=== PATIENT | female | born 1950 | race Caucasian/White ===

== ENCOUNTER 2018-10-19 21:11 | Inpatient (IN) | payer MEDICARE, MEDICAID ==
--- NOTE | 2018-10-19 21:55 | ED Physician Chart ---
ED Chief Complaint/HPI - Patient Information Date Seen:: 10/19/18 Time Seen:: 21:49 Chief Complaint:: anxiety headache History of Present Illness:: 68 yr old female with hx of copd htn anxiety for worsening anxiety migraines and trouble sleeping now on 10mg ambien Allergies:: Allergies Allergy/AdvReac Type Severity Reaction Status Date / Time erythromycin base Allergy Unknown RASH Verified 05/29/18 20:49 naloxone Allergy Unknown Verified 05/29/18 20:51 albuterol Allergy Verified 05/29/18 20:55 latex Allergy Verified 05/29/18 20:59 oxycodone Allergy Verified 05/29/18 20:51 pentazocine Allergy Verified 05/29/18 20:53 prednisone Allergy Verified 05/29/18 20:53 tetracycline Allergy Verified 05/29/18 20:54 theophylline Allergy Verified 05/29/18 20:54 Vitals:: Vital Signs - 8 hr 10/19/18 21:24 Temp 98.6 F HR 82 RR 17 BP 115/72 O2 Sat % 96 ED Review of Systems - Review of Systems General/Constitutional: No fever Skin: No skin lesions Head: Headache Eyes: No loss of vision ENT: No earache Neck: No neck pain Cardio Vascular: No chest pain Pulmonary: No SOB GI: No vomiting G/U: No dysuria Musculoskeletal: No bone or joint pain Endocrine: No polyuria Psychiatric: Depression, Anxiety Hematopoietic: No bruising Allergic/Immuno: No urticaria Neurological: No syncope Family Medical History - Family Member Mother History Unknown: Yes Ethnicity: Unknown Living Status: Unknown Hx Family Cancer: (unknown) Hx Family Coronary Artery Disease: (unknown) Hx Family Congestive Heart Failure: (unknown) Hx Family Hypertension: (unknown) Hx Family Stroke: (unknown) Hx Family Diabetes: (unknown) Hx Family Seizures: (unknown) Hx Family Dementia: (unknown) Hx Family AIDS: (unknown) Hx Family HIV: No Hx Family COPD: (unknown) Hx Family Hepatitis: (unknown) Hx Family Psychiatric Problems: (unknown) Hx Family Tuberculosis: (unknown) ED Septic Shock - . Is Septic Shock (SBP<90, OR Lactate>4 mmol\L) present?: No - <6hrs of presentation: Vital Signs: Vital Signs - 8 hr 10/19/18 21:24 Temp 98.6 F HR 82 RR 17 BP 115/72 O2 Sat % 96 ED Reassessment (Disposition) - Reassessment Reassessment:: insomnia anxiety - Diagnosis Diagnosis:: anxiety headache - Patient Disposition Discharge/Transfer:: Acute Care w/in this hosp Admitted to:: Med/Surg Condition at Disposition:: Stable
[2018-10-19 22:09] LABS: % BASOPHILS 0.6 % (0.0-2.0); % EOSINOPHILS 3.7 % (0.0-5.0); % LYMPHOCYTES 20.7 % (20.0-50.0); % MONOCYTES 8.9 % (2.0-10.0); % NEUTROPHILS 66.1 % (40.0-80.0); BASOPHILE ABSOLUTE 0.1 Th/cumm (0-0.2); EOSINOPHILE ABSOLUTE 0.3 Th/cmm (0.1-0.4); HEMATOCRIT 32.1 % (41.0-60); HEMOGLOBIN 10.7 gm/dL (12-16); LYMPHOCYTE ABSOLUTE 1.8 Th/cmm (1.5-3.0); MEAN CELL VOLUME 94.2 fl (81-100); MEAN CORPUSCULAR HEMOGLOBIN 31.5 pg (27.0-31.0); MEAN CORPUSCULAR HGB CONC 33.4 pg (28.0-36.0); MONOCYTE ABSOLUTE 0.8 Th/cmm (0.3-1.0); NEUTROPHILE ABSOLUTE 5.6 Th/cmm (1.8-8.0); PLATELET COUNT 243 Th/cmm (150-400); RED CELL DISTRIBUTION WIDTH 13.8 % (11.5-20.0); WHITE BLOOD COUNT 8.6 Th/cmm (4.8-10.8)
[2018-10-19 22:24] LABS: ALB/GLOB RATIO 1.7 (1.0-1.8); ALBUMIN 3.9 gm/dL (3.7-5.3); ANION GAP 14.6 (7.0-16.0); BILIRUBIN,TOTAL 0.4 mg/dL (0.3-1.0); CALCIUM SERUM 9.4 mg/dL (8.6-10.3); CARBON DIOXIDE 22.4 mEq/L (21.0-31.0); CREATININE - SERUM 1.4 mg/dL (0.6-1.2); GFR AFRICAN-AMERICAN 48.4 ml/min (>90); TOTAL PROTEIN,SERUM 6.2 gm/dL (6.0-8.3)
[2018-10-19 22:31] LABS: URINE SOURCE CLEAN C
[2018-10-19 22:32] LABS: URINE BILIRUBIN NEGATIVE (NEGATIVE); URINE BLOOD NEGATIVE (NEGATIVE); URINE GLUCOSE (UA) NEGATIVE (NEGATIVE); URINE KETONE NEGATIVE (NEGATIVE); URINE LEUKOCYTE ESTERASE SMALL (NEGATIVE); URINE NITRATE NEGATIVE (NEGATIVE); URINE PROTEIN NEGATIVE (NEGATIVE); URINE UROBILINOGEN 0.2 E.U./dL (0.2 - 1.0)
[2018-10-19 22:33] LABS: URINE CLARITY HAZY (CLEAR); URINE COLOR YELLOW; URINE MICROSCOPIC INDICATED? YES
[2018-10-19 22:38] LABS: URINE BACTERIA FEW /hpf (NONE SEEN); URINE EPITHELIAL CELLS FEW /lpf (FEW); URINE RBC 0-2 /hpf (0-5)
[2018-10-20 00:47] VITALS: BP 133/41
[2018-10-20] MEDS ORDERED: Magnesium Hydroxide (MOM) 30 mL UDC PO PRN (00:57)
[2018-10-20] MEDS ORDERED: Multivitamin Tab PO SCH (09:00)
--- NOTE | 2018-10-20 14:26 | History & Physical ---
ADMIT DATE: 10/20/2018 DICTATED FOR: Dr. Quiroz. CHIEF COMPLAINT: Medical evaluation and clearance on the patient who has been admitted to inpatient psych. HISTORY OF PRESENT ILLNESS: This is a 68-year-old female admitted from Home who was admitted here to the Med/Surg unit due to severe migraines and insomnia. PAST MEDICAL HISTORY: Hypertension, hypercholesterolemia, CAD, insomnia, depression. PAST SURGICAL HISTORY: Unknown. ALLERGIES: ERYTHROMYCIN, NALOXONE, ALBUTEROL, OXYCODONE, AND LATEX. REVIEW OF SYSTEMS: GENERAL: Denies any fever or chills. CARDIOVASCULAR: Denies chest pain. RESPIRATORY: Denies shortness of breath. GASTROINTESTINAL: Denies nausea, vomiting, abdominal pain. GENITOURINARY: Denies increased frequency or dysuria. NEUROLOGIC: Denies headache, seizure, syncope. All systems are reviewed and are negative. PHYSICAL EXAMINATION: GENERAL: The patient is well developed, well nourished, in no apparent distress. VITAL SIGNS: Temperature 96.2, heart rate 61, blood pressure 113/41, respiration 18, O2 98%. HEENT: Head normocephalic, atraumatic. NECK: Supple. No mass. LUNGS: Clear bilaterally. HEART: Regular rhythm. ABDOMEN: Soft, nontender. LABORATORY DATA: WBC 8.6, H and H 10.7 and 32.1, platelet of 243. Sodium 138, potassium 4.0, chloride 105, BUN 27, creatinine 1.4. ASSESSMENT: Migraines, anxiety, severe depression, type 2 diabetes. PLAN: The patient to be admitted to Med/Surg Unit. We will get psychiatry on the case. We will continue to monitor the patient. JOB# [id number]
[2018-10-20] MEDS ORDERED: Atorvastatin Calcium 10 MG TAB PO SCH (17:00)
== END 2018-10-20 17:47 | DRG 103 ==
LOC: ER 21:11 → MSI 23:07
PROVIDERS: ADMIT Internal Medicine; ATTEND Internal Medicine
DX: G43.909 Migraine, unspecified, not intractable, without status migrainosus (principal); F41.9 Anxiety disorder, unspecified; J44.9 Chronic obstructive pulmonary disease, unspecified; I10 Essential (primary) hypertension; G47.00 Insomnia, unspecified; E78.00 Pure hypercholesterolemia, unspecified; I25.10 Atherosclerotic heart disease of native coronary artery without angina pectoris; F32.9 Major depressive disorder, single episode, unspecified; Z88.1 Allergy status to other antibiotic agents
CPT/HCPCS: 36415-UA; 80053-TC; 81001-TC; 85025-TC; Z7610

== ENCOUNTER 2019-05-04 21:50 | Inpatient (IN) | payer MEDICARE, MEDICAID ==
[2019-05-05] MEDS ORDERED: OLOPATADINE HCL EACH EYE PRN (05:13)
[2019-05-05] MEDS ORDERED: Magnesium Hydroxide (MOM) 30 mL UDC PO PRN (05:13)
--- NOTE | 2019-05-05 08:05 | Psychiatric Evaluation ---
DATE OF SERVICE: 05/05/2019 PSYCHIATRIC INITIAL EVALUATION AND MENTAL STATUS EXAM AGE: 69. SEX: Female. PHYSICIAN: Dr. Stroud. CHIEF COMPLAINT: Agitation and increased anxiety. HISTORY OF PRESENT ILLNESS: The patient is a 69-year-old female who was transferred from [facility] because of increased agitation and increased anxiety. The patient has been restless and anxious and in irritable mood. The patient also has not been able to follow staff directions and nursing facility and staff has not been able to handle her agitation and irritability. The patient also has been having difficulty taking her medications. PAST PSYCHIATRIC HISTORY: The patient has a history of depression with psychosis. The patient is currently taking Zoloft and Remeron. PAST MEDICAL HISTORY: The patient has history of migraine headaches as well as hypercholesterolemia, hypertension and coronary artery disease. SOCIAL HISTORY: The patient has been living in [facility]. No known alcohol or any street drug use. ALLERGIES: ERYTHROMYCIN, OXYCODONE, LASIX, ALBUTEROL, NALTREXONE. MENTAL STATUS EXAMINATION: The patient appears her stated age. Anxious. Cooperative. Depressed mood. Preoccupied. Thought processes are mainly goal directed. The patient denies auditory or visual hallucinations or delusions. The patient denies any suicidal or homicidal ideations. The patient is alert and oriented to time, place, person, and situation. Intact immediate, recent and remote memories. Poor insight and poor judgment. Seems to be of average intelligence based on her verbal ability. ASSESSMENT: PRIMARY DIAGNOSIS: Depressive mood disorder, unspecified, with psychotic features. MEDICAL DIAGNOSES: 1. Hypercholesterolemia. 2. Migraine headaches. 3. Hypertension 4. Coronary artery disease. TREATMENT PLAN: We will continue to monitor behavior and condition closely. Also, we will add Risperdal in a dose of 0.25 mg at bedtime. Also, we will work on her poor ineffective coping and her irritability. ESTIMATED LENGTH OF STAY: 5-7 days. PATIENT'S STRENGTHS AND WEAKNESSES: The patient's strength is not clear at this time except that she is in relatively fair health. Weaknesses is her ineffective coping and her agitation. AFTER DISCHARGE PLANS: The patient will return to [facility] with plans to follow her up. CRITERIA FOR DISCHARGE: The patient will not be psychotic and will stabilize psychotropic medications and will establish outpatient treatment plans. JOB# [id number]
[2019-05-05] MEDS: Ferrous Sulfate 325 MG TAB PO SCH ×3 (08:15→21:32)
[2019-05-05] MEDS ORDERED: FLUTICASONE PROPIONATE IH SCH (09:00)
--- NOTE | 2019-05-05 12:21 | History and Physical ---
History of Present Illness - HPI Chief Complaint: Agitation and increased anxiety HPI: 69F Transferred from [facility] for increased agitation and anxiety. Patient has not been able to follow staff directions and nursing facility has not been able to handle her agitation and irritability. Vital Signs: Last Vital Signs Temp 97.6 F 05/05/19 06:12 Pulse 73 05/05/19 08:15 Resp 18 05/05/19 06:12 BP 113/63 05/05/19 08:17 Pulse Ox 97 05/05/19 06:12 Past Medical History Other History: Migraine Hyperlipidemai HTN CAD Insomnia Depression Family Medical History - Family Member Mother History Unknown: Yes Ethnicity: Unknown Living Status: Unknown Hx Family Cancer: (unknown) Hx Family Coronary Artery Disease: (unknown) Hx Family Congestive Heart Failure: (unknown) Hx Family Hypertension: (unknown) Hx Family Stroke: (unknown) Hx Family Diabetes: (unknown) Hx Family Seizures: (unknown) Hx Family Dementia: (unknown) Hx Family AIDS: (unknown) Hx Family HIV: No Hx Family COPD: (unknown) Hx Family Hepatitis: (unknown) Hx Family Psychiatric Problems: (unknown) Hx Family Tuberculosis: (unknown) Social History Smoke: No Alcohol: Other Drugs: Other Lives: [facility] - Medications Home Medications: Home Medication Medication Instructions Recorded Type Atorvastatin Calcium [Lipitor] 40 mg PO HS 10/19/18 History Docusate Sodium 100 mg PO DAILY 10/19/18 History Fluticasone Propionate [Flovent 2 puff IH BID 10/19/18 History Hfa] Olopatadine HCl [Pazeo] 1 drop EACH EYE DAILY PRN 10/19/18 History Cholecalciferol (Vit D3) [Vitamin 1,000 iu PO DAILY tab 11/02/18 Rx D3] Clopidogrel [Plavix] 37.5 mg PO DAILY tab 11/02/18 Rx Cyanocobalamin [Vitamin B12] 1,000 mcg PO DAILY tab 11/02/18 Rx Enalapril Maleate [Vasotec] 10 mg PO DAILY tab 11/02/18 Rx Hydrochlorothiazide [Hctz*] 25 mg PO DAILY tab 11/02/18 Rx Ketotifen 0.025% Ophth Soln 1 drop EACH EYE DAILY drops 11/02/18 Rx [Zaditor 0.025% Ophth Soln] Lorazepam [Ativan] 0.5 mg PO Q4HR PRN tab 11/02/18 Rx Magnesium Hydroxide [Milk of 30 ml PO DAILY PRN udc 11/02/18 Rx Magnesia] Zolpidem Tartrate [Ambien] 5 mg PO HS PRN tab 11/02/18 Rx Acetaminophen [Tylenol] 650 mg PO Q4H PRN 05/05/19 History Acetaminophen [Tylenol] 650 mg PO Q4HR PRN 05/05/19 History Ferrous Sulfate [Iron] 325 mg PO TID 05/05/19 History Mirtazapine [Remeron] 7.5 mg PO HS 05/05/19 History Sertraline [Zoloft] 25 mg PO QAM 05/05/19 History - Allergies Allergies/Adverse Reactions: Allergies Allergy/AdvReac Type Severity Reaction Status Date / Time erythromycin base Allergy Unknown RASH Verified 05/05/19 03:55 naloxone Allergy Unknown Verified 05/05/19 03:55 albuterol Allergy Verified 05/05/19 03:55 ciprofloxacin Allergy Verified 05/05/19 03:57 furosemide [From Lasix] Allergy Verified 05/05/19 03:59 latex Allergy Verified 05/05/19 03:55 oxycodone Allergy Verified 05/05/19 03:55 pentazocine Allergy Verified 05/05/19 03:55 prednisone Allergy Verified 05/05/19 03:55 tetracycline Allergy Verified 05/05/19 03:55 theophylline Allergy Verified 05/05/19 03:55 vancomycin Allergy Verified 05/05/19 03:57 Review of Systems - Review of Systems Constitutional: Report: No Significant Eyes: Report: No Significant Respiratory: Report: No Significant Cardiovascular: Report: No Significant Neurological: Report: Confusion Physical Exam - Physical Exam HEENT: Report: Ears Nose Throat within normal limits Neck: Report: Within normal limits Cardiovascular Systems: Report: +s1/s2 noted, Regular, Rate and Rhythm, no murmurs noted Respiratory: Report: Breath Sounds are within normal limits Abdomen: Report: Non-tender to palpation Extremities: Report: Non-tender to palpation. Skin: Report: Color of skin is within normal limits - Assessment Assessment: Agitation Anxiety Migraine HTN CAD Insomnia Depression - Plan Plan: Continue current treatment plan. Continue current medications Continue to monitor VS Monitor Diet/Nutritional support. Psych management per Psychiatry. Pain Management. PT/OT prn Safety precaution, Fall precaution, frequent nursing round. Supportive care. Continue collaborating with consulting specialists, case management and nursing team
--- NOTE | 2019-05-06 08:11 | Progress Notes ---
DATE: 05/06/2019 SUBJECTIVE: The patient was seen in her room. The patient is awake, alert, appears to be forgetful with poor impulse control and needs a lot of redirection. Otherwise, the patient appears to be in no acute distress. OBJECTIVE: VITAL SIGNS: Temperature 97.5, heart rate 67, blood pressure 131/61, respirations 20, 94% on room air. HEENT: Head is atraumatic and normocephalic. Eyes: Bilateral conjunctivae are clear. Bilateral pupils are equal, round, reactive. NECK: Supple. No JVD. CARDIOVASCULAR: S1 and S2, without murmur. PULMONARY: Clear to auscultation. GASTROINTESTINAL: Soft and nontender without guarding. Positive bowel sounds. MUSCULOSKELETAL: No clubbing. No cyanosis noted. ASSESSMENT: 1. Major depression disorder with psychotic features. 2. Hypertension. 3. Coronary artery disease. 4. Hyperlipidemia. 5. Migraine. PLAN: We will continue to keep the patient inpatient to Psychiatric Unit. We will follow up with a psychiatrist to monitor the patient's condition and behavior. We will put the patient on fall precautions. Treatment plans were discussed with the patient's nurse. Treatment plans were discussed with Dr. Quiroz. JOB# [id number]
[2019-05-06] MEDS: Ferrous Sulfate 325 MG TAB PO SCH ×3 (08:47→21:19)
--- NOTE | 2019-05-07 04:59 | Progress Notes ---
DATE: 05/06/2019 SUBJECTIVE: Chart was reviewed and the patient interviewed. Also discussed the patient's condition with the staff and reviewed records and labs. The patient is still anxious and she still has episodes of yelling. The patient also continues to ask for Tylenol for pain and after she takes Tylenol, goes back and asks for another Tylenol. She is still easily agitated and she is in irritable mood. The patient also tries to get off bed and exposing herself to high fall risk. On the other hand, the patient is compliant with taking her medications with no side effects. ASSESSMENT: The patient is still agitated and seems to be psychotic. TREATMENT PLAN: Continue monitoring behavior closely. Also, continue Remeron and Seroquel, but also continue Zoloft in a dose of 25 mg every day and continue to follow up. JOB# [id number]
[2019-05-07] MEDS: Ferrous Sulfate 325 MG TAB PO SCH ×3 (09:27→21:03)
--- NOTE | 2019-05-07 19:45 | Progress Notes ---
DATE: 05/07/2019 SUBJECTIVE: Chart was reviewed and the patient interviewed. Also discussed the patient's condition with the staff and reviewed records and labs. The patient still has episodes of yelling and screaming for no apparent reason. The patient also is still talking to herself. The patient also is agitated and is somewhat confused and suspicious and paranoid, but easily got redirected. The patient continued to comply with taking her medications with no side effects of medications. ASSESSMENT: The patient is still agitated and psychotic. TREATMENT PLAN: Continue monitoring her behavior and condition closely. Also, continue Risperdal and Zoloft and Remeron and continue to follow up. JOB# [id number]
--- NOTE | 2019-05-07 21:52 | Internal Medicine Prog Note ---
Internal Medicine Subjective - Subjective Patient is:: asleep, arousable, in bed, confused Per staff patient has:: no adverse event, no episodes of fall Internal Medicine Objective - Physical Exam Vitals and I&O: Vital Signs Temp 98.4 F 05/07/19 20:20 Pulse 79 05/07/19 20:20 Resp 20 05/07/19 20:20 BP 120/54 05/07/19 20:20 Pulse Ox 93 05/07/19 20:20 Intake & Output 05/07/19 05/07/19 05/08/19 06:59 18:59 06:59 Intake Total 240 240 Balance 240 240 Intake: Oral 240 240 Other: # Voids 1 3 2 # Bowel Movements 1 Active Medications: Current Medications Acetaminophen (Tylenol) 650 mg PO Q4H PRN PRN Reason: Pain (Mild 1-3) Stop: 07/04/19 04:26 Last Admin: 05/06/19 11:34 Dose: 650 mg Amoxicillin (Amoxil) 500 mg PO TID [facility] Stop: 05/14/19 08:59 Last Admin: 05/07/19 21:02 Dose: 500 mg Atorvastatin Calcium (Lipitor) 40 mg PO HS [facility] Stop: 07/04/19 20:59 Last Admin: 05/07/19 21:03 Dose: 40 mg Cholecalciferol (Vitamin D3) 1,000 iu PO DAILY [facility] Stop: 07/04/19 08:59 Last Admin: 05/07/19 09:24 Dose: 1,000 iu Clopidogrel Bisulfate (Plavix) 37.5 mg PO DAILY [facility] Stop: 07/04/19 08:59 Last Admin: 05/07/19 09:24 Dose: 37.5 mg Cyanocobalamin (Vitamin B12) 1,000 mcg PO DAILY [facility] Stop: 07/04/19 08:59 Last Admin: 05/07/19 09:25 Dose: 1,000 mcg Docusate Sodium (Colace) 100 mg PO DAILY [facility] Stop: 07/04/19 08:59 Last Admin: 05/07/19 09:25 Dose: 100 mg Enalapril Maleate (Vasotec) 10 mg PO DAILY [facility] Stop: 07/04/19 08:59 Last Admin: 05/07/19 09:25 Dose: 10 mg Ferrous Sulfate (Iron) 325 mg PO TID [facility] Stop: 07/04/19 08:59 Last Admin: 05/07/19 21:03 Dose: 325 mg Hydrochlorothiazide (Hctz) 25 mg PO DAILY [facility] Stop: 07/04/19 08:59 Last Admin: 05/07/19 09:27 Dose: 25 mg Ketotifen Fumarate (Zaditor 0.025% Ophth Soln) 1 drop EACH EYE DAILY [facility] Stop: 07/04/19 08:59 Last Admin: 05/07/19 09:28 Dose: 1 drop Lorazepam (Ativan) 0.5 mg PO Q4HR PRN; Protocol PRN Reason: Anxiety Stop: 07/04/19 05:10 Last Admin: 05/06/19 21:19 Dose: 0.5 mg Magnesium Hydroxide (Milk Of Magnesia) 30 ml PO DAILY PRN PRN Reason: Constipation Stop: 07/04/19 05:12 Mirtazapine (Remeron) 7.5 mg PO HS ANNY; Protocol Stop: 07/04/19 20:59 Last Admin: 05/07/19 21:02 Dose: 7.5 mg Risperidone (Risperdal) 0.25 mg PO DAILY [facility]; Protocol Stop: 07/04/19 08:59 Last Admin: 05/07/19 09:28 Dose: 0.25 mg Sertraline HCl (Zoloft) 25 mg PO QAM [facility]; Protocol Stop: 07/04/19 08:59 Last Admin: 05/07/19 09:28 Dose: 25 mg Zolpidem Tartrate (Ambien) 5 mg PO HS PRN PRN Reason: Insomnia Stop: 07/04/19 05:10 Last Admin: 05/07/19 21:03 Dose: 5 mg General: weak, demented, NAD HEENT: NC/AT, PERRLA Neck: Supple, No JVD Lungs: other (no respiratory distress on RA) Cardiovascular: RRR, Normal S1, Normal S2, without murmur Abdomen: soft, non-tender, non-distended Internal Medicine Assmt/Plan - Assessment Assessment: Agitation Anxiety Migraine HTN CAD Insomnia Depression - Plan Plan: Continue current treatment plan. Continue current medications Continue to monitor VS Monitor Diet/Nutritional support. Psych management per Psychiatry. Pain Management. PT/OT prn Safety precaution, Fall precaution, frequent nursing round. Supportive care. Continue collaborating with consulting specialists, case management and nursing team
[2019-05-08] MEDS: Ferrous Sulfate 325 MG TAB PO SCH ×3 (08:35→20:57)
--- NOTE | 2019-05-08 11:33 | Internal Medicine Prog Note ---
Internal Medicine Subjective - Subjective Service Date: 05/08/19 Patient seen and examined:: with staff Patient is:: asleep, arousable, agitated, confused Patient Complaints of:: other (History of Migraines.) Per staff patient has:: no adverse event, no episodes of fall Internal Medicine Objective - Physical Exam Vitals and I&O: Vital Signs Temp 97.3 F 05/08/19 05:52 Pulse 82 05/08/19 08:34 Resp 18 05/08/19 07:39 BP 153/66 05/08/19 08:35 Pulse Ox 92 05/08/19 05:52 Intake & Output 05/07/19 05/08/19 05/08/19 18:59 06:59 18:59 Intake Total 360 Balance 360 Intake: Oral 360 Other: # Voids 3 2 # Bowel Movements 1 1 Active Medications: Current Medications Acetaminophen (Tylenol) 650 mg PO Q4H PRN PRN Reason: Pain (Mild 1-3) Stop: 07/04/19 04:26 Last Admin: 05/06/19 11:34 Dose: 650 mg Amoxicillin (Amoxil) 500 mg PO TID [facility] Stop: 05/14/19 08:59 Last Admin: 05/08/19 08:34 Dose: 500 mg Atorvastatin Calcium (Lipitor) 40 mg PO HS [facility] Stop: 07/04/19 20:59 Last Admin: 05/07/19 21:03 Dose: 40 mg Cholecalciferol (Vitamin D3) 1,000 iu PO DAILY [facility] Stop: 07/04/19 08:59 Last Admin: 05/08/19 08:34 Dose: 1,000 iu Clopidogrel Bisulfate (Plavix) 37.5 mg PO DAILY [facility] Stop: 07/04/19 08:59 Last Admin: 05/08/19 08:34 Dose: 37.5 mg Cyanocobalamin (Vitamin B12) 1,000 mcg PO DAILY [facility] Stop: 07/04/19 08:59 Last Admin: 05/08/19 08:34 Dose: 1,000 mcg Docusate Sodium (Colace) 100 mg PO DAILY [facility] Stop: 07/04/19 08:59 Last Admin: 05/08/19 08:34 Dose: 100 mg Enalapril Maleate (Vasotec) 10 mg PO DAILY [facility] Stop: 07/04/19 08:59 Last Admin: 05/08/19 08:34 Dose: 10 mg Ferrous Sulfate (Iron) 325 mg PO TID [facility] Stop: 07/04/19 08:59 Last Admin: 05/08/19 08:35 Dose: 325 mg Hydrochlorothiazide (Hctz) 25 mg PO DAILY [facility] Stop: 07/04/19 08:59 Last Admin: 05/08/19 08:35 Dose: 25 mg Ketotifen Fumarate (Zaditor 0.025% Ophth Soln) 1 drop EACH EYE DAILY [facility] Stop: 07/04/19 08:59 Last Admin: 05/08/19 08:36 Dose: 1 drop Lorazepam (Ativan) 0.5 mg PO Q4HR PRN; Protocol PRN Reason: Anxiety Stop: 07/04/19 05:10 Last Admin: 05/08/19 10:49 Dose: 0.5 mg Magnesium Hydroxide (Milk Of Magnesia) 30 ml PO DAILY PRN PRN Reason: Constipation Stop: 07/04/19 05:12 Mirtazapine (Remeron) 7.5 mg PO HS [facility]; Protocol Stop: 07/04/19 20:59 Last Admin: 05/07/19 21:02 Dose: 7.5 mg Risperidone (Risperdal) 0.5 mg PO DAILY [facility]; Protocol Stop: 07/07/19 08:59 Last Admin: 05/08/19 10:49 Dose: 0.5 mg Sertraline HCl (Zoloft) 25 mg PO QAM [facility]; Protocol Stop: 07/04/19 08:59 Last Admin: 05/08/19 08:36 Dose: 25 mg Zolpidem Tartrate (Ambien) 5 mg PO HS PRN PRN Reason: Insomnia Stop: 07/04/19 05:10 Last Admin: 05/07/19 21:03 Dose: 5 mg Physical Exam: Patient needs close monitoring, very aggressive, paranoid, having episodes of yelling. General: weak, demented, NAD HEENT: NC/AT, PERRLA Neck: Supple, No JVD Lungs: other (no respiratory distress on RA) Cardiovascular: RRR, Normal S1, Normal S2, without murmur Abdomen: soft, non-tender, non-distended Extremities: clear Neurological: no change Internal Medicine Assmt/Plan - Assessment Assessment: Agitated. Increased Anxiety. Paranoia. Migraine Headaches. Hypertension. CAD. Hypercholesterolemia. Insomnia. Depressive mood disorder, unspecified, with psychotic features. - Plan Plan: Psych management as per Psych. Continue present meds as directed. Monitor diet and nutritional support. Supportive care. Monitor vitals and labs. Pain management. Continue current treatment plan as ordered. Nutritional Asmnt/Malnutr-PDOC - Dietary Evaluation Malnutrition Findings (Please click <Entered> for more info): see orders.
[2019-05-08] MEDS ORDERED: Albuterol Nebulizer 2.5mg/3mL HHN PRN (19:20)
--- NOTE | 2019-05-09 01:34 | Progress Notes ---
DATE: 05/08/2019 SUBJECTIVE: Chart was reviewed and the patient interviewed. Also discussed the patient's condition with the staff and reviewed records and labs. The patient is still suspicious and paranoid. The patient also is demanding and is still repeating the same question over and over in a confused state. She also still needs lots of redirection and easily agitated. ASSESSMENT: The patient is still psychotic and agitated. TREATMENT PLAN: We will continue monitoring behavior closely. Also, we will increase Risperdal to 0.5 mg every day and continue Zoloft 50 mg every day and continue to follow up closely. JOB# [id number]
[2019-05-09] MEDS: Ferrous Sulfate 325 MG TAB PO SCH ×3 (09:04→20:55)
--- NOTE | 2019-05-09 11:20 | Progress Notes ---
DATE: 05/09/2019 SUBJECTIVE: Chart reviewed and the patient interviewed. Also discussed the patient's condition with the staff and reviewed records and labs. The patient is still forgetful and is still easily irritable and agitated. The patient also is intrusive and is suspicious and paranoid. The patient also paranoid about the staff and telling nurses that "are you going to kill me." She is still attention seeking and also is still in angry and in irritable mood with severe mood swings. ASSESSMENT: The patient is still agitated and is still psychotic. TREATMENT PLAN: Continue to monitor behavior and condition closely. Also, continue adjusting psychotropic medications and we will increase Risperdal to 0.5 mg twice a day and we will continue to follow up. [facility]# [id number]
--- NOTE | 2019-05-09 17:27 | Internal Medicine Prog Note ---
Internal Medicine Subjective - Subjective Service Date: 05/09/19 Patient is:: asleep, arousable, agitated, confused Patient Complaints of:: other (History of Migraines.) Per staff patient has:: no adverse event, no episodes of fall Internal Medicine Objective - Physical Exam Vitals and I&O: Vital Signs Temp 97.6 F 05/09/19 15:48 Pulse 59 05/09/19 15:48 Resp 18 05/09/19 15:48 BP 119/54 05/09/19 15:48 Pulse Ox 93 05/09/19 15:48 Intake & Output 05/08/19 05/09/19 05/09/19 18:59 06:59 18:59 Intake Total 1000 240 Balance 1000 240 Intake: Oral 1000 240 Other: # Voids 4 1 # Bowel Movements 1 Active Medications: Current Medications Acetaminophen (Tylenol) 650 mg PO Q4H PRN PRN Reason: Pain (Mild 1-3) Stop: 07/04/19 04:26 Last Admin: 05/08/19 21:02 Dose: 650 mg Amoxicillin (Amoxil) 500 mg PO TID ANNY Stop: 05/14/19 08:59 Last Admin: 05/09/19 14:13 Dose: 500 mg Atorvastatin Calcium (Lipitor) 40 mg PO HS ANNY Stop: 07/04/19 20:59 Last Admin: 05/08/19 20:58 Dose: 40 mg Cholecalciferol (Vitamin D3) 1,000 iu PO DAILY ANNY Stop: 07/04/19 08:59 Last Admin: 05/09/19 09:05 Dose: 1,000 iu Clopidogrel Bisulfate (Plavix) 37.5 mg PO DAILY ANNY Stop: 07/04/19 08:59 Last Admin: 05/09/19 09:05 Dose: 37.5 mg Cyanocobalamin (Vitamin B12) 1,000 mcg PO DAILY ANNY Stop: 07/04/19 08:59 Last Admin: 05/09/19 09:04 Dose: 1,000 mcg Docusate Sodium (Colace) 100 mg PO DAILY ANNY Stop: 07/04/19 08:59 Last Admin: 05/09/19 09:04 Dose: 100 mg Enalapril Maleate (Vasotec) 10 mg PO DAILY ANNY Stop: 07/04/19 08:59 Last Admin: 01/28/20 09:16 Dose: 10 mg Ferrous Sulfate (Iron) 325 mg PO TID [facility] Stop: 07/04/19 08:59 Last Admin: 05/09/19 14:13 Dose: 325 mg Hydrochlorothiazide (Hctz) 25 mg PO DAILY [facility] Stop: 07/04/19 08:59 Last Admin: 05/09/19 09:17 Dose: 25 mg Ketotifen Fumarate (Zaditor 0.025% Ophth Soln) 1 drop EACH EYE DAILY [facility] Stop: 07/04/19 08:59 Last Admin: 05/09/19 09:42 Dose: 1 drop Lorazepam (Ativan) 0.5 mg PO Q4HR PRN; Protocol PRN Reason: Anxiety Stop: 07/04/19 05:10 Last Admin: 05/09/19 11:34 Dose: 0.5 mg Magnesium Hydroxide (Milk Of Magnesia) 30 ml PO DAILY PRN PRN Reason: Constipation Stop: 07/04/19 05:12 Mirtazapine (Remeron) 7.5 mg PO HS [facility]; Protocol Stop: 07/04/19 20:59 Last Admin: 05/08/19 20:58 Dose: 7.5 mg Risperidone (Risperdal) 0.5 mg PO BID [facility]; Protocol Stop: 07/08/19 08:59 Last Admin: 05/09/19 16:53 Dose: 0.5 mg Sertraline HCl (Zoloft) 25 mg PO QAM [facility]; Protocol Stop: 07/04/19 08:59 Last Admin: 05/09/19 09:05 Dose: 25 mg Zolpidem Tartrate (Ambien) 5 mg PO HS PRN PRN Reason: Insomnia Stop: 07/04/19 05:10 Last Admin: 05/08/19 20:58 Dose: 5 mg General: weak, demented, NAD HEENT: NC/AT, PERRLA Neck: Supple, No JVD Lungs: other (no respiratory distress on RA) Cardiovascular: RRR, Normal S1, Normal S2, without murmur Abdomen: soft, non-tender, non-distended Extremities: clear Neurological: no change Internal Medicine Assmt/Plan - Assessment Assessment: Agitation Anxiety Migraine HTN CAD Insomnia Depression - Plan Plan: Continue current treatment plan. Continue current medications Continue to monitor VS Monitor Diet/Nutritional support. Psych management per Psychiatry. Pain Management. PT/OT prn Safety precaution, Fall precaution, frequent nursing round. Supportive care. Continue collaborating with consulting specialists, case management and nursing team
[2019-05-10] MEDS: Ferrous Sulfate 325 MG TAB PO SCH ×3 (08:28→20:06)
--- NOTE | 2019-05-10 11:22 | Internal Medicine Prog Note ---
Internal Medicine Subjective - Subjective Service Date: 05/10/19 Patient seen and examined:: with staff Patient is:: asleep, arousable, agitated, confused Patient Complaints of:: other (History of Migraines.) Per staff patient has:: no adverse event, no episodes of fall Internal Medicine Objective - Physical Exam Vitals and I&O: Vital Signs Temp 97.5 F 05/10/19 06:24 Pulse 63 05/10/19 08:29 Resp 18 05/10/19 08:00 BP 121/64 05/10/19 08:30 Pulse Ox 95 05/10/19 06:24 Intake & Output 05/09/19 05/10/19 05/10/19 18:59 06:59 18:59 Intake Total 800 360 Output Total 1 Balance 800 359 Intake: Oral 800 360 Output: Urine/Stool Mix 1 Other: # Voids 4 2 # Bowel Movements 10 0 Active Medications: Current Medications Acetaminophen (Tylenol) 650 mg PO Q4H PRN PRN Reason: Pain (Mild 1-3) Stop: 07/04/19 04:26 Last Admin: 05/08/19 21:02 Dose: 650 mg Atorvastatin Calcium (Lipitor) 40 mg PO HS ANNY Stop: 07/04/19 20:59 Last Admin: 05/09/19 20:54 Dose: 40 mg Cholecalciferol (Vitamin D3) 1,000 iu PO DAILY [facility] Stop: 07/04/19 08:59 Last Admin: 05/10/19 08:29 Dose: 1,000 iu Clopidogrel Bisulfate (Plavix) 37.5 mg PO DAILY [facility] Stop: 07/04/19 08:59 Last Admin: 05/10/19 08:29 Dose: 37.5 mg Cyanocobalamin (Vitamin B12) 1,000 mcg PO DAILY [facility] Stop: 07/04/19 08:59 Last Admin: 05/10/19 08:29 Dose: 1,000 mcg Docusate Sodium (Colace) 100 mg PO DAILY [facility] Stop: 07/04/19 08:59 Last Admin: 05/10/19 08:30 Dose: Not Given Enalapril Maleate (Vasotec) 10 mg PO DAILY [facility] Stop: 07/04/19 08:59 Last Admin: 05/10/19 08:29 Dose: 10 mg Ferrous Sulfate (Iron) 325 mg PO TID ANNY Stop: 07/04/19 08:59 Last Admin: 05/10/19 08:28 Dose: 325 mg Hydrochlorothiazide (Hctz) 25 mg PO DAILY [facility] Stop: 07/04/19 08:59 Last Admin: 05/10/19 08:30 Dose: 25 mg Ketotifen Fumarate (Zaditor 0.025% Ophth Soln) 1 drop EACH EYE DAILY [facility] Stop: 07/04/19 08:59 Last Admin: 05/10/19 08:31 Dose: 1 drop Loperamide HCl (Imodium) 2 mg PO DAILY PRN PRN Reason: Diarrhea Stop: 07/08/19 18:47 Last Admin: 05/09/19 20:55 Dose: 2 mg Lorazepam (Ativan) 0.5 mg PO Q4HR PRN; Protocol PRN Reason: Anxiety Stop: 07/04/19 05:10 Last Admin: 05/09/19 19:49 Dose: 0.5 mg Magnesium Hydroxide (Milk Of Magnesia) 30 ml PO DAILY PRN PRN Reason: Constipation Stop: 07/04/19 05:12 Mirtazapine (Remeron) 7.5 mg PO HS [facility]; Protocol Stop: 07/04/19 20:59 Last Admin: 05/09/19 20:54 Dose: 7.5 mg Risperidone (Risperdal) 1 mg PO BID [facility]; Protocol Stop: 07/09/19 08:59 Last Admin: 05/10/19 09:07 Dose: 1 mg Sertraline HCl (Zoloft) 25 mg PO QAM [facility]; Protocol Stop: 07/04/19 08:59 Last Admin: 05/10/19 08:28 Dose: 25 mg Zolpidem Tartrate (Ambien) 5 mg PO HS PRN PRN Reason: Insomnia Stop: 07/04/19 05:10 Last Admin: 05/09/19 20:55 Dose: 5 mg Physical Exam: Patient needs close monitoring, having mood swings, delusional states that others are trying to kill her. General: weak, demented, NAD HEENT: NC/AT, PERRLA Neck: Supple, No JVD Lungs: other (no respiratory distress on RA) Cardiovascular: RRR, Normal S1, Normal S2, without murmur Abdomen: soft, non-tender, non-distended Extremities: clear Neurological: no change Internal Medicine Assmt/Plan - Assessment Assessment: Agitated. Increased Anxiety. Paranoia. Migraine Headaches. Hypertension. CAD. Hypercholesterolemia. Insomnia. Depressive mood disorder, unspecified, with psychotic features. - Plan Plan: Psych management as per Psych. Continue present meds as directed. Monitor diet and nutritional support. Supportive care. Monitor vitals and labs. Pain management. Continue current treatment plan as ordered. Nutritional Asmnt/Malnutr-PDOC - Dietary Evaluation Malnutrition Findings (Please click <Entered> for more info): see orders.
[2019-05-11] MEDS: Ferrous Sulfate 325 MG TAB PO SCH ×3 (08:34→20:44)
--- NOTE | 2019-05-11 10:13 | Progress Notes ---
DATE: SUBJECTIVE: Chart was reviewed and the patient interviewed. Also discussed the patient's condition with the staff and reviewed records and labs. The patient is still depressed and is still guarded. The patient is also still demanding and is still restless. The patient also intentionally ran into staff and other patients ____ chair, as if it is an accidental. She needs lots of redirections. Also, the patient is needy and attention seeking to the point that yesterday she asked one of staff to "wipe my butt." She still needs lots of redirections because of her agitation. Otherwise, the patient continued to take Zoloft and Risperdal, with no side effects. ASSESSMENT: The patient is still agitated and psychotic and restless. TREATMENT PLAN: Continue to monitor behavior and condition closely. Also, we will increase Risperdal to 1 mg twice a day and we will continue to follow up closely. JOB# [id number]
--- NOTE | 2019-05-11 13:23 | Progress Notes ---
DATE: 05/11/2019 SUBJECTIVE: Chart was reviewed and the patient interviewed. I also discussed the patient's condition with the staff and reviewed records and labs. The patient is forgetful and is still suspicious and paranoid. The patient also is still easily agitated. She also still needs lots of redirections. She is still at times trying to hit other patients with her wheelchair and that is why currently she is placed on the [employer] chair. Otherwise, the patient is compliant with taking her medications with no side effects of medications. ASSESSMENT: The patient is still psychotic and is still in irritable mood. TREATMENT PLAN: We will discontinue Zoloft. We will increase Remeron to 15 mg every day. Also, we will increase Risperdal to 1.5 mg twice a day and continue to follow up her condition and her medications closely. JOB# [id number]
--- NOTE | 2019-05-11 14:06 | Internal Medicine Prog Note ---
Internal Medicine Subjective - Subjective Service Date: 05/11/19 Patient is:: awake, arousable, agitated, confused Patient Complaints of:: other (History of Migraines.) Per staff patient has:: no adverse event, no episodes of fall Internal Medicine Objective - Physical Exam Vitals and I&O: Vital Signs Temp 97.2 F 05/11/19 06:23 Pulse 67 05/11/19 08:44 Resp 18 05/11/19 08:00 BP 119/61 05/11/19 08:44 Pulse Ox 96 05/11/19 06:23 Intake & Output 05/10/19 05/11/19 05/11/19 18:59 06:59 18:59 Intake Total 1200 120 Balance 1200 120 Intake: Oral 1200 120 Other: # Voids 2 # Bowel Movements 1 0 Active Medications: Current Medications Acetaminophen (Tylenol) 650 mg PO Q4H PRN PRN Reason: Pain (Mild 1-3) Stop: 07/04/19 04:26 Last Admin: 05/08/19 21:02 Dose: 650 mg Atorvastatin Calcium (Lipitor) 40 mg PO HS [facility]NY Stop: 07/04/19 20:59 Last Admin: 05/10/19 20:06 Dose: 40 mg Cholecalciferol (Vitamin D3) 1,000 iu PO DAILY [facility] Stop: 07/04/19 08:59 Last Admin: 05/11/19 08:34 Dose: Not Given Clopidogrel Bisulfate (Plavix) 37.5 mg PO DAILY [facility] Stop: 07/04/19 08:59 Last Admin: 05/11/19 08:34 Dose: 37.5 mg Cyanocobalamin (Vitamin B12) 1,000 mcg PO DAILY [facility] Stop: 07/04/19 08:59 Last Admin: 05/11/19 08:46 Dose: 1,000 mcg Docusate Sodium (Colace) 100 mg PO DAILY [facility] Stop: 07/04/19 08:59 Last Admin: 05/11/19 08:46 Dose: Not Given Enalapril Maleate (Vasotec) 10 mg PO DAILY [facility] Stop: 07/04/19 08:59 Last Admin: 05/11/19 08:44 Dose: 10 mg Ferrous Sulfate (Iron) 325 mg PO TID [facility] Stop: 07/04/19 08:59 Last Admin: 05/11/19 08:34 Dose: Not Given Hydrochlorothiazide (Hctz) 25 mg PO DAILY [facility] Stop: 07/04/19 08:59 Last Admin: 05/10/19 08:30 Dose: 25 mg Ketotifen Fumarate (Zaditor 0.025% Ophth Soln) 1 drop EACH EYE DAILY [facility] Stop: 07/04/19 08:59 Last Admin: 05/11/19 11:50 Dose: 1 drop Loperamide HCl (Imodium) 2 mg PO DAILY PRN PRN Reason: Diarrhea Stop: 07/08/19 18:47 Last Admin: 05/09/19 20:55 Dose: 2 mg Lorazepam (Ativan) 0.5 mg PO Q4HR PRN; Protocol PRN Reason: Anxiety Stop: 07/04/19 05:10 Last Admin: 05/11/19 11:50 Dose: 0.5 mg Magnesium Hydroxide (Milk Of Magnesia) 30 ml PO DAILY PRN PRN Reason: Constipation Stop: 07/04/19 05:12 Mirtazapine (Remeron) 15 mg PO HS [facility]; Protocol Stop: 07/10/19 20:59 Risperidone 1 mg/ Risperidone (0.5 mg) 1.5 mg PO BID ANNY Stop: 07/10/19 08:59 Last Admin: 05/11/19 10:30 Dose: Not Given Zolpidem Tartrate (Ambien) 5 mg PO HS PRN PRN Reason: Insomnia Stop: 07/04/19 05:10 Last Admin: 05/10/19 22:34 Dose: 5 mg General: weak, demented, NAD HEENT: NC/AT, PERRLA Neck: Supple, No JVD Lungs: other (no respiratory distress on RA) Cardiovascular: RRR, Normal S1, Normal S2, without murmur Abdomen: soft, non-tender, non-distended Extremities: clear Neurological: no change Internal Medicine Assmt/Plan - Assessment Assessment: Agitation Anxiety Migraine HTN CAD Insomnia Depression - Plan Plan: Continue current treatment plan. Continue current medications Continue to monitor VS Monitor Diet/Nutritional support. Psych management per Psychiatry. Pain Management. PT/OT prn Safety precaution, Fall precaution, frequent nursing round. Supportive care. Continue collaborating with consulting specialists, case management and nursing team Nutritional Asmnt/Malnutr-PDOC - Dietary Evaluation Malnutrition Findings (Please click <Entered> for more info): Nutritional Asmnt/Malnutrition Start: 05/11/19 13: 38 Text: Status: Complete Freq: Protocol: Document 05/11/19 13:38 ABDIEL (Rec: 05/11/19 13:41 [id number]) Nutritional Asmnt/Malnutrition Patient General Information Nutritional Screening Low Risk Diagnosis Psychosis Pertinent Medical Hx/Surgical Hx Migraine, Hyperlipidemia, HTN, CAD, Insomnia, Depression Subjective Information Pt is a 69-year-old female admitted on 05/05 d/t agitation and irritability, unable to follow directions at nursing facility. Pt is eating an estimated 65% of meals x4 days Per Meal/Nutrition Activity Record. Dietary is currently providing an estimated 2300 kcals and 110 gm Pro, per Pt PO intake this is providing an estimated 1500 kcals and 70gm Pro to meet 100+% kcal and 100+% Pro needs. Anthropometrics HT: 5 FT WT: 151 LB (68.64 kg) ABW: 113 LB (51.25 kg) BMI: 29.55 (Overweight) GI/ Skin Integrity GI: WNL, Soft, Non-tender BM: 05/10 x1 I/O: 1320/Not Noted Skin: WNL, Intact Drew: 20 Diet Order: Regular Estimated Energy Needs: (ABW) 8432-5579 kcals (20-25 kcals/ kg) 40-50g Pro (0.8-1.0g/kg) 1647-9887 ml (25-30 ml/kg) Current Diet Order/ Nutrition Support Regular Pertinent Medications Lipitor, vitamin D3, Plavix, Colace, Ferrous sulfate, Hydrochlorothiazide, Imodium ( PRN), MOM (PRN) Pertinent Labs 05/04: Hgb/Hct 10.3/30.8, Na 127, Glucose 105, GFR 48 Nutritional Hx/Data Height 5 ft Height (Calculated Centimeters) 152.4 Current Weight (lbs) 151 lb Weight (Calculated Kilograms) 68.5 Weight (Calculated Grams) 17492.4 [place] Body Weight 100 LB (45.45 kg) % [place] Body Weight 151 Body Mass Index (BMI) 29.5 Weight Status Overweight GI Symptoms GI Symptoms None Last BM 05/10 x1 Skin Integrity/Comment: Skin: WNL, Intact Drew: 20 Current %PO Fair (50-74%) Estimated Nutritional Goals BEE in Kcals: Adj wt of IBW Calories/Kcals/Kg 20-25 Kcals Calculated 8194-2586 Protein: Adj wt of IBW Protein g/k.8-1.0 Protein Calculated 40-50 Fluid: ml 0151-1505 ml (25-30 ml/kg) Nutritional Problem 1. Problem Problem No nutrition diagnosis at this time. Etiology N/A Signs/Symptoms: N/A Malnutrition Related to Morbid Obesity Malnutrition related to morbid obesity No Intervention/Recommendation Comments Continue Regular diet as tolerated. Expected Outcomes/Goals Expected Outcomes/Goals 1.PO intake to continue to meet >75% of estimated nutritional needs. 2.Monitor PO intake, wt, nutrition related labs, and skin integrity. 3.F/U as low risk in 7-10 days , 05/18-05/21
[2019-05-11] MEDS ORDERED: guaiFENesin 200 MG/10 ML UDC PO PRN (15:35)
--- NOTE | 2019-05-12 08:21 | Progress Notes ---
DATE: Chart reviewed and the patient interviewed. Also discussed the patient's condition with the staff and reviewed records and labs. The patient is still in irritable and angry mood. The patient also is still suspicious and paranoid and demanding. She also still unable to carry on coherent conversation. The patient also still needs lots of redirections. Otherwise, the patient is selective with her medications and she still needs lots of adjustment to her medications, especially that she is selective with her medications and yesterday, the patient refused to take Risperdal. ASSESSMENT: The patient is still psychotic. PLAN: We will continue monitoring behavior and continue to follow up closely. JOB# [id number]
[2019-05-12] MEDS: Ferrous Sulfate 325 MG TAB PO SCH ×3 (09:20→20:32)
--- NOTE | 2019-05-12 13:31 | Internal Medicine Prog Note ---
Internal Medicine Subjective - Subjective Service Date: 05/12/19 Patient seen and examined:: with staff Patient is:: awake, arousable, agitated, confused Patient Complaints of:: other (History of Migraines.) Per staff patient has:: no adverse event, no episodes of fall Internal Medicine Objective - Physical Exam Vitals and I&O: Vital Signs Temp 98.2 F 05/12/19 06:36 Pulse 60 05/12/19 06:36 Resp 18 05/12/19 08:00 BP 104/67 05/12/19 06:36 Pulse Ox 98 05/12/19 06:36 Intake & Output 05/11/19 05/12/19 05/12/19 18:59 06:59 18:59 Intake Total 1000 120 Balance 1000 120 Intake: Oral 1000 120 Other: # Voids 4 3 # Bowel Movements 1 Active Medications: Current Medications Acetaminophen (Tylenol) 650 mg PO Q4H PRN PRN Reason: Pain (Mild 1-3) Stop: 07/04/19 04:26 Last Admin: 05/12/19 10:55 Dose: 650 mg Atorvastatin Calcium (Lipitor) 40 mg PO HS [facility] Stop: 07/04/19 20:59 Last Admin: 05/11/19 20:44 Dose: 40 mg Cholecalciferol (Vitamin D3) 1,000 iu PO DAILY [facility] Stop: 07/04/19 08:59 Last Admin: 05/12/19 09:22 Dose: 1,000 iu Clopidogrel Bisulfate (Plavix) 37.5 mg PO DAILY [facility] Stop: 07/04/19 08:59 Last Admin: 05/12/19 09:21 Dose: 37.5 mg Cyanocobalamin (Vitamin B12) 1,000 mcg PO DAILY [facility] Stop: 07/04/19 08:59 Last Admin: 05/12/19 09:21 Dose: 1,000 mcg Docusate Sodium (Colace) 100 mg PO DAILY [facility] Stop: 07/04/19 08:59 Last Admin: 05/12/19 09:33 Dose: Not Given Enalapril Maleate (Vasotec) 10 mg PO DAILY [facility] Stop: 07/04/19 08:59 Last Admin: 05/11/19 08:44 Dose: 10 mg Ferrous Sulfate (Iron) 325 mg PO TID [facility] Stop: 07/04/19 08:59 Last Admin: 05/12/19 09:20 Dose: 325 mg Guaifenesin (Robitussin) 200 mg PO Q4HR PRN PRN Reason: Cough or Congestion Stop: 07/10/19 15:34 Last Admin: 05/11/19 15:56 Dose: 200 mg Hydrochlorothiazide (Hctz) 25 mg PO DAILY [facility] Stop: 07/04/19 08:59 Last Admin: 05/11/19 15:56 Dose: 25 mg Ketotifen Fumarate (Zaditor 0.025% Ophth Soln) 1 drop EACH EYE DAILY [facility] Stop: 07/04/19 08:59 Last Admin: 05/12/19 09:29 Dose: 1 drop Loperamide HCl (Imodium) 2 mg PO DAILY PRN PRN Reason: Diarrhea Stop: 07/08/19 18:47 Last Admin: 05/09/19 20:55 Dose: 2 mg Lorazepam (Ativan) 0.5 mg PO Q4HR PRN; Protocol PRN Reason: Anxiety Stop: 07/04/19 05:10 Last Admin: 05/12/19 12:08 Dose: 0.5 mg Magnesium Hydroxide (Milk Of Magnesia) 30 ml PO DAILY PRN PRN Reason: Constipation Stop: 07/04/19 05:12 Mirtazapine (Remeron) 15 mg PO HS [facility]; Protocol Stop: 07/10/19 20:59 Last Admin: 05/11/19 20:44 Dose: 15 mg Risperidone 1 mg/ Risperidone (0.5 mg) 1.5 mg PO BID [facility] Stop: 07/10/19 08:59 Last Admin: 05/12/19 09:23 Dose: 1.5 mg Zolpidem Tartrate (Ambien) 5 mg PO HS PRN PRN Reason: Insomnia Stop: 07/04/19 05:10 Last Admin: 05/11/19 20:44 Dose: 5 mg Physical Exam: Patient needs close monitoring, very angry and upset, easily frustrated. General: weak, demented, NAD HEENT: NC/AT, PERRLA Neck: Supple, No JVD Lungs: other (no respiratory distress on RA) Cardiovascular: RRR, Normal S1, Normal S2, without murmur Abdomen: soft, non-tender, non-distended Extremities: clear Neurological: no change Internal Medicine Assmt/Plan - Assessment Assessment: Agitated. Increased Anxiety. Paranoia. Migraine Headaches. Hypertension. CAD. Hypercholesterolemia. Insomnia. Depressive mood disorder, unspecified, with psychotic features. - Plan Plan: Psych management as per Psych. Continue present meds as directed. Monitor diet and nutritional support. Supportive care. Monitor vitals and labs. Pain management. Continue current treatment plan as ordered. Nutritional Asmnt/Malnutr-PDOC - Dietary Evaluation Malnutrition Findings (Please click <Entered> for more info): Nutritional Asmnt/Malnutrition Start: 05/11/19 13: 38 Text: Status: Complete Freq: Protocol: Document 05/11/19 13:38 ABDIEL (Rec: 05/11/19 13:41 [id number]) Nutritional Asmnt/Malnutrition Patient General Information Nutritional Screening Low Risk Diagnosis Psychosis Pertinent Medical Hx/Surgical Hx Migraine, Hyperlipidemia, HTN, CAD, Insomnia, Depression Subjective Information Pt is a 69-year-old female admitted on 05/05 d/t agitation and irritability, unable to follow directions at nursing facility. Pt is eating an estimated 65% of meals x4 days Per Meal/Nutrition Activity Record. Dietary is currently providing an estimated 2300 kcals and 110 gm Pro, per Pt PO intake this is providing an estimated 1500 kcals and 70gm Pro to meet 100+% kcal and 100+% Pro needs. Anthropometrics HT: 5 FT WT: 151 LB (68.64 kg) ABW: 113 LB (51.25 kg) BMI: 29.55 (Overweight) GI/ Skin Integrity GI: WNL, Soft, Non-tender BM: 05/10 x1 I/O: 1320/Not Noted Skin: WNL, Intact Drew: 20 Diet Order: Regular Estimated Energy Needs: (ABW) 3978-8209 kcals (20-25 kcals/ kg) 40-50g Pro (0.8-1.0g/kg) 3758-6518 ml (25-30 ml/kg) Current Diet Order/ Nutrition Support Regular Pertinent Medications Lipitor, vitamin D3, Plavix, Colace, Ferrous sulfate, Hydrochlorothiazide, Imodium ( PRN), MOM (PRN) Pertinent Labs 05/04: Hgb/Hct 10.3/30.8, Na 127, Glucose 105, GFR 48 Nutritional Hx/Data Height 1.52 m Height (Calculated Centimeters) 152.4 Current Weight (lbs) 68.492 kg Weight (Calculated Kilograms) 68.5 Weight (Calculated Grams) 40586.4 [place] Body Weight 100 LB (45.45 kg) % [place] Body Weight 151 Body Mass Index (BMI) 29.5 Weight Status Overweight GI Symptoms GI Symptoms None Last BM 05/10 x1 Skin Integrity/Comment: Skin: WNL, Intact Drew: 20 Current %PO Fair (50-74%) Estimated Nutritional Goals BEE in Kcals: Adj wt of IBW Calories/Kcals/Kg 20-25 Kcals Calculated 6795-7589 Protein: Adj wt of IBW Protein g/k.8-1.0 Protein Calculated 40-50 Fluid: ml 4563-7899 ml (25-30 ml/kg) Nutritional Problem 1. Problem Problem No nutrition diagnosis at this time. Etiology N/A Signs/Symptoms: N/A Malnutrition Related to Morbid Obesity Malnutrition related to morbid obesity No Intervention/Recommendation Comments Continue Regular diet as tolerated. Expected Outcomes/Goals Expected Outcomes/Goals 1.PO intake to continue to meet >75% of estimated nutritional needs. 2.Monitor PO intake, wt, nutrition related labs, and skin integrity. 3.F/U as low risk in 7-10 days , 05/18-05/21
[2019-05-13] MEDS: Ferrous Sulfate 325 MG TAB PO SCH ×3 (08:39→21:02)
--- NOTE | 2019-05-13 13:17 | Internal Medicine Prog Note ---
Internal Medicine Subjective - Subjective Patient is:: awake, arousable, in wheelchair, agitated, confused Patient Complaints of:: other (History of Migraines.) Per staff patient has:: no adverse event, no episodes of fall Internal Medicine Objective - Physical Exam Vitals and I&O: Vital Signs Temp 97.6 F 05/13/19 06:08 Pulse 87 05/13/19 08:59 Resp 18 05/13/19 08:00 BP 124/54 05/13/19 08:59 Pulse Ox 92 05/13/19 06:08 Intake & Output 05/12/19 05/13/19 05/13/19 18:59 06:59 18:59 Intake Total 1000 360 Output Total 1 Balance 1000 359 Intake: Oral 1000 360 Output: Urine/Stool Mix 1 Other: # Voids 4 1 # Bowel Movements 1 1 Active Medications: Current Medications Acetaminophen (Tylenol) 650 mg PO Q4HR PRN PRN Reason: Pain (Mild 1-3) Stop: 07/11/19 14:11 Acetaminophen (Tylenol) 650 mg PO Q4H PRN PRN Reason: Temperature above 101 Stop: 07/11/19 14:11 Atorvastatin Calcium (Lipitor) 40 mg PO HS [facility] Stop: 07/04/19 20:59 Last Admin: 05/12/19 20:32 Dose: 40 mg Cholecalciferol (Vitamin D3) 1,000 iu PO DAILY [facility] Stop: 07/04/19 08:59 Last Admin: 05/13/19 08:40 Dose: 1,000 iu Clopidogrel Bisulfate (Plavix) 37.5 mg PO DAILY [facility] Stop: 07/04/19 08:59 Last Admin: 05/13/19 08:41 Dose: 37.5 mg Cyanocobalamin (Vitamin B12) 1,000 mcg PO DAILY [facility] Stop: 07/04/19 08:59 Last Admin: 05/13/19 08:39 Dose: 1,000 mcg Docusate Sodium (Colace) 100 mg PO DAILY [facility] Stop: 07/04/19 08:59 Last Admin: 05/13/19 08:39 Dose: 100 mg Enalapril Maleate (Vasotec) 10 mg PO HS [facility] Stop: 07/12/19 20:59 Ferrous Sulfate (Iron) 325 mg PO TID [facility] Stop: 07/04/19 08:59 Last Admin: 05/13/19 08:39 Dose: 325 mg Guaifenesin (Robitussin) 200 mg PO Q4HR PRN PRN Reason: Cough or Congestion Stop: 07/10/19 15:34 Last Admin: 05/11/19 15:56 Dose: 200 mg Hydrochlorothiazide (Hctz) 25 mg PO DAILY [facility] Stop: 07/04/19 13:59 Ketotifen Fumarate (Zaditor 0.025% Ophth Soln) 1 drop EACH EYE DAILY [facility] Stop: 07/04/19 08:59 Last Admin: 05/13/19 08:58 Dose: 1 drop Loperamide HCl (Imodium) 2 mg PO DAILY PRN PRN Reason: Diarrhea Stop: 07/08/19 18:47 Last Admin: 05/09/19 20:55 Dose: 2 mg Lorazepam (Ativan) 0.5 mg PO Q4HR PRN; Protocol PRN Reason: Anxiety Stop: 07/04/19 05:10 Last Admin: 05/13/19 08:58 Dose: 0.5 mg Magnesium Hydroxide (Milk Of Magnesia) 30 ml PO DAILY PRN PRN Reason: Constipation Stop: 07/04/19 05:12 Mirtazapine (Remeron) 15 mg PO HS [facility]; Protocol Stop: 07/10/19 20:59 Last Admin: 05/12/19 20:33 Dose: 15 mg Risperidone 1 mg/ Risperidone (0.5 mg) 1.5 mg PO BID [facility] Stop: 07/10/19 08:59 Last Admin: 05/13/19 08:39 Dose: 1.5 mg Sumatriptan Succinate (Imitrex) 50 mg PO TID PRN PRN Reason: MIGRAINE Stop: 07/11/19 14:29 Last Admin: 05/12/19 21:19 Dose: 50 mg Zolpidem Tartrate (Ambien) 5 mg PO HS PRN PRN Reason: Insomnia Stop: 07/04/19 05:10 Last Admin: 05/11/19 20:44 Dose: 5 mg General: weak, demented, NAD HEENT: NC/AT, PERRLA Neck: Supple, No JVD Lungs: other (no respiratory distress on RA) Cardiovascular: RRR, Normal S1, Normal S2, without murmur Abdomen: soft, non-tender, non-distended Extremities: clear Neurological: no change Internal Medicine Assmt/Plan - Assessment Assessment: Agitation Anxiety Migraine HTN CAD Insomnia Depression - Plan Plan: Continue current treatment plan. Continue current medications Continue to monitor VS Monitor Diet/Nutritional support. Psych management per Psychiatry. Pain Management. PT/OT prn Safety precaution, Fall precaution, frequent nursing round. Supportive care. Continue collaborating with consulting specialists, case management and nursing team Nutritional Asmnt/Malnutr-PDOC - Dietary Evaluation Malnutrition Findings (Please click <Entered> for more info): Nutritional Asmnt/Malnutrition Start: 05/11/19 13: 38 Text: Status: Complete Freq: Protocol: Document 05/11/19 13:38 ABDIEL (Rec: 05/11/19 13:41 [email or web address] DE [email or web address] [email or web address]) Nutritional Asmnt/Malnutrition Patient General Information Nutritional Screening Low Risk Diagnosis Psychosis Pertinent Medical Hx/Surgical Hx Migraine, Hyperlipidemia, HTN, CAD, Insomnia, Depression Subjective Information Pt is a 69-year-old female admitted on 05/05 d/t agitation and irritability, unable to follow directions at nursing facility. Pt is eating an estimated 65% of meals x4 days Per Meal/Nutrition Activity Record. Dietary is currently providing an estimated 2300 kcals and 110 gm Pro, per Pt PO intake this is providing an estimated 1500 kcals and 70gm Pro to meet 100+% kcal and 100+% Pro needs. Anthropometrics HT: 5 FT WT: 151 LB (68.64 kg) ABW: 113 LB (51.25 kg) BMI: 29.55 (Overweight) GI/ Skin Integrity GI: WNL, Soft, Non-tender BM: 05/10 x1 I/O: 1320/Not Noted Skin: WNL, Intact Drew: 20 Diet Order: Regular Estimated Energy Needs: (ABW) 1488-8397 kcals (20-25 kcals/ kg) 40-50g Pro (0.8-1.0g/kg) 5168-7416 ml (25-30 ml/kg) Current Diet Order/ Nutrition Support Regular Pertinent Medications Lipitor, vitamin D3, Plavix, Colace, Ferrous sulfate, Hydrochlorothiazide, Imodium ( PRN), MOM (PRN) Pertinent Labs 05/04: Hgb/Hct 10.3/30.8, Na 127, Glucose 105, GFR 48 Nutritional Hx/Data Height 5 ft Height (Calculated Centimeters) 152.4 Current Weight (lbs) 151 lb Weight (Calculated Kilograms) 68.5 Weight (Calculated Grams) 36486.4 [place] Body Weight 100 LB (45.45 kg) % [place] Body Weight 151 Body Mass Index (BMI) 29.5 Weight Status Overweight GI Symptoms GI Symptoms None Last BM 05/10 x1 Skin Integrity/Comment: Skin: WNL, Intact Drew: 20 Current %PO Fair (50-74%) Estimated Nutritional Goals BEE in Kcals: Adj wt of IBW Calories/Kcals/Kg 20-25 Kcals Calculated 7965-0073 Protein: Adj wt of IBW Protein g/k.8-1.0 Protein Calculated 40-50 Fluid: ml 5154-3268 ml (25-30 ml/kg) Nutritional Problem 1. Problem Problem No nutrition diagnosis at this time. Etiology N/A Signs/Symptoms: N/A Malnutrition Related to Morbid Obesity Malnutrition related to morbid obesity No Intervention/Recommendation Comments Continue Regular diet as tolerated. Expected Outcomes/Goals Expected Outcomes/Goals 1.PO intake to continue to meet >75% of estimated nutritional needs. 2.Monitor PO intake, wt, nutrition related labs, and skin integrity. 3.F/U as low risk in 7-10 days , 05/18-05/21
--- NOTE | 2019-05-13 18:14 | Psych Progress Note ---
Psych Progress Note - Intro Date of Progress Note: 05/13/19 - Assessment Assessment: Patient interviewed, case discussed with staff, chart and records were reviewed. Dr. Seth covering for Dr. Stroud. The patient is quite agitated this morning. She is very labile talking fast uncooperative and impulsive. Attempted to redirect patient towards the interview however she began with pressured speech and unwilling to cooperate with the interview. She gets upset and states "call my conservator." She otherwise is uncooperative and gets easily angered. No side effects have been noted to the medicine. - Vitals, I&O Vitals: Vital Signs - 24 hr 05/12/19 05/13/19 05/13/19 19:56 06:08 08:00 Temp 98.1 F 97.6 F HR 59 59 RR 20 19 18 BP 115/59 123/51 O2 Sat % 97 92 05/13/19 05/13/19 08:59 14:02 Temp HR 87 RR BP 124/54 116/62 O2 Sat % - Plan Plan: Continue current treatment plan and monitor for behavior. - Review of Relevant Data Review of Relevant Data: I have reviewed the following items and time ya (where applicable) has been applied. - Medications Current Medications: Current Medications Acetaminophen (Tylenol) 650 mg PO Q4HR PRN PRN Reason: Pain (Mild 1-3) Stop: 07/11/19 14:11 Acetaminophen (Tylenol) 650 mg PO Q4H PRN PRN Reason: Temperature above 101 Stop: 07/11/19 14:11 Atorvastatin Calcium (Lipitor) 40 mg PO HS [facility] Stop: 07/04/19 20:59 Last Admin: 05/12/19 20:32 Dose: 40 mg Cholecalciferol (Vitamin D3) 1,000 iu PO DAILY [facility] Stop: 07/04/19 08:59 Last Admin: 05/13/19 08:40 Dose: 1,000 iu Clopidogrel Bisulfate (Plavix) 37.5 mg PO DAILY [facility] Stop: 07/04/19 08:59 Last Admin: 05/13/19 08:41 Dose: 37.5 mg Cyanocobalamin (Vitamin B12) 1,000 mcg PO DAILY [facility] Stop: 07/04/19 08:59 Last Admin: 05/13/19 08:39 Dose: 1,000 mcg Docusate Sodium (Colace) 100 mg PO DAILY [facility] Stop: 07/04/19 08:59 Last Admin: 05/13/19 08:39 Dose: 100 mg Enalapril Maleate (Vasotec) 10 mg PO HS [facility] Stop: 07/12/19 20:59 Ferrous Sulfate (Iron) 325 mg PO TID [facility] Stop: 07/04/19 08:59 Last Admin: 05/13/19 14:00 Dose: 325 mg Guaifenesin (Robitussin) 200 mg PO Q4HR PRN PRN Reason: Cough or Congestion Stop: 07/10/19 15:34 Last Admin: 05/11/19 15:56 Dose: 200 mg Hydrochlorothiazide (Hctz) 25 mg PO DAILY [facility] Stop: 07/04/19 13:59 Last Admin: 05/13/19 14:02 Dose: 25 mg Ketotifen Fumarate (Zaditor 0.025% Oph Soln) 1 drop EACH EYE DAILY [facility] Stop: 07/04/19 08:59 Last Admin: 05/13/19 08:58 Dose: 1 drop Loperamide HCl (Imodium) 2 mg PO DAILY PRN PRN Reason: Diarrhea Stop: 07/08/19 18:47 Last Admin: 05/09/19 20:55 Dose: 2 mg Lorazepam (Ativan) 0.5 mg PO Q4HR PRN; Protocol PRN Reason: Anxiety Stop: 07/04/19 05:10 Last Admin: 05/13/19 14:00 Dose: 0.5 mg Magnesium Hydroxide (Milk Of Magnesia) 30 ml PO DAILY PRN PRN Reason: Constipation Stop: 07/04/19 05:12 Mirtazapine (Remeron) 15 mg PO HS [facility]; Protocol Stop: 07/10/19 20:59 Last Admin: 05/12/19 20:33 Dose: 15 mg Risperidone 1 mg/ Risperidone (0.5 mg) 1.5 mg PO BID [facility] Stop: 07/10/19 08:59 Last Admin: 05/13/19 17:38 Dose: 1.5 mg Sumatriptan Succinate (Imitrex) 50 mg PO TID PRN PRN Reason: MIGRAINE Stop: 07/11/19 14:29 Last Admin: 05/12/19 21:19 Dose: 50 mg Zolpidem Tartrate (Ambien) 5 mg PO HS PRN PRN Reason: Insomnia Stop: 07/04/19 05:10 Last Admin: 05/11/19 20:44 Dose: 5 mg
--- NOTE | 2019-05-14 07:54 | Progress Notes ---
DATE: 05/14/2019 SUBJECTIVE: A 69-year-old female transferred from [facility]. Increased agitation, anxiety, mostly restless, anxious, is not able to follow really direction. On [id number], the patient is noted to still be angry, irritable, difficult to assess this morning, refusing to speak with me, is sleeping but arousable. Concerns for ongoing psychotic symptoms. Medications were noted, discussed with staff. Continue dosing of Risperdal. No overt side effects. [facility]# [id number]
[2019-05-14] MEDS: Ferrous Sulfate 325 MG TAB PO SCH ×3 (08:42→21:16)
--- NOTE | 2019-05-14 11:41 | Internal Medicine Prog Note ---
Internal Medicine Subjective - Subjective Patient is:: awake, arousable, ambulating, agitated, confused Patient Complaints of:: other (History of Migraines.) Per staff patient has:: no adverse event, no episodes of fall Internal Medicine Objective - Physical Exam Vitals and I&O: Vital Signs Temp 96.8 F 05/14/19 05:53 Pulse 63 05/14/19 05:53 Resp 18 05/14/19 08:00 BP 139/64 05/14/19 08:43 Pulse Ox 97 05/14/19 05:53 Intake & Output 05/13/19 05/14/19 05/14/19 18:59 06:59 18:59 Intake Total 850 360 Balance 850 360 Intake: Oral 850 360 Other: # Voids 4 2 # Bowel Movements 0 1 Active Medications: Current Medications Acetaminophen (Tylenol) 650 mg PO Q4HR PRN PRN Reason: Pain (Mild 1-3) Stop: 07/11/19 14:11 Last Admin: 05/14/19 10:26 Dose: 650 mg Acetaminophen (Tylenol) 650 mg PO Q4H PRN PRN Reason: Temperature above 101 Stop: 07/11/19 14:11 Atorvastatin Calcium (Lipitor) 40 mg PO HS [facility] Stop: 07/04/19 20:59 Last Admin: 05/13/19 21:00 Dose: 40 mg Cholecalciferol (Vitamin D3) 1,000 iu PO DAILY [facility] Stop: 07/04/19 08:59 Last Admin: 05/14/19 08:43 Dose: 1,000 iu Clopidogrel Bisulfate (Plavix) 37.5 mg PO DAILY [facility] Stop: 07/04/19 08:59 Last Admin: 05/14/19 08:41 Dose: 37.5 mg Cyanocobalamin (Vitamin B12) 1,000 mcg PO DAILY [facility] Stop: 07/04/19 08:59 Last Admin: 05/14/19 08:42 Dose: 1,000 mcg Docusate Sodium (Colace) 100 mg PO DAILY [facility] Stop: 07/04/19 08:59 Last Admin: 05/14/19 08:43 Dose: 100 mg Enalapril Maleate (Vasotec) 10 mg PO HS [facility] Stop: 07/12/19 20:59 Last Admin: 05/13/19 21:01 Dose: Not Given Ferrous Sulfate (Iron) 325 mg PO TID [facility] Stop: 07/04/19 08:59 Last Admin: 05/14/19 08:42 Dose: 325 mg Guaifenesin (Robitussin) 200 mg PO Q4HR PRN PRN Reason: Cough or Congestion Stop: 07/10/19 15:34 Last Admin: 05/11/19 15:56 Dose: 200 mg Hydrochlorothiazide (Hctz) 25 mg PO DAILY [facility] Stop: 07/04/19 13:59 Last Admin: 05/14/19 08:43 Dose: 25 mg Ketotifen Fumarate (Zaditor 0.025% Oph Soln) 1 drop EACH EYE DAILY [facility] Stop: 07/04/19 08:59 Last Admin: 05/14/19 08:41 Dose: 1 drop Loperamide HCl (Imodium) 2 mg PO DAILY PRN PRN Reason: Diarrhea Stop: 07/08/19 18:47 Last Admin: 05/09/19 20:55 Dose: 2 mg Lorazepam (Ativan) 0.5 mg PO Q4HR PRN; Protocol PRN Reason: Anxiety Stop: 07/04/19 05:10 Last Admin: 05/14/19 10:26 Dose: 0.5 mg Magnesium Hydroxide (Milk Of Magnesia) 30 ml PO DAILY PRN PRN Reason: Constipation Stop: 07/04/19 05:12 Mirtazapine (Remeron) 15 mg PO HS [facility]; Protocol Stop: 07/10/19 20:59 Last Admin: 05/13/19 21:02 Dose: 15 mg Risperidone 1 mg/ Risperidone (0.5 mg) 1.5 mg PO BID [facility] Stop: 07/10/19 08:59 Last Admin: 05/14/19 08:42 Dose: 1.5 mg Sumatriptan Succinate (Imitrex) 50 mg PO TID PRN PRN Reason: MIGRAINE Stop: 07/11/19 14:29 Last Admin: 05/12/19 21:19 Dose: 50 mg Zolpidem Tartrate (Ambien) 5 mg PO HS PRN PRN Reason: Insomnia Stop: 07/04/19 05:10 Last Admin: 05/13/19 21:03 Dose: 5 mg General: weak, demented, NAD HEENT: NC/AT, PERRLA Neck: Supple, No JVD Lungs: other (no respiratory distress on RA) Cardiovascular: RRR, Normal S1, Normal S2, without murmur Abdomen: soft, non-tender, non-distended Extremities: clear Neurological: no change Internal Medicine Assmt/Plan - Assessment Assessment: Agitation Anxiety Migraine HTN CAD Insomnia Depression - Plan Plan: Continue current treatment plan. Continue current medications Continue to monitor VS Monitor Diet/Nutritional support. Psych management per Psychiatry. Pain Management. PT/OT prn Safety precaution, Fall precaution, frequent nursing round. Supportive care. Continue collaborating with consulting specialists, case management and nursing team Nutritional Asmnt/Malnutr-PDOC - Dietary Evaluation Malnutrition Findings (Please click <Entered> for more info): Nutritional Asmnt/Malnutrition Start: 05/11/19 13: 38 Text: Status: Complete Freq: Protocol: Document 05/11/19 13:38 ABDIEL (Rec: 05/11/19 13:41 ABDIEL DE [email or web address]) Nutritional Asmnt/Malnutrition Patient General Information Nutritional Screening Low Risk Diagnosis Psychosis Pertinent Medical Hx/Surgical Hx Migraine, Hyperlipidemia, HTN, CAD, Insomnia, Depression Subjective Information Pt is a 69-year-old female admitted on 05/05 d/t agitation and irritability, unable to follow directions at nursing facility. Pt is eating an estimated 65% of meals x4 days Per Meal/Nutrition Activity Record. Dietary is currently providing an estimated 2300 kcals and 110 gm Pro, per Pt PO intake this is providing an estimated 1500 kcals and 70gm Pro to meet 100+% kcal and 100+% Pro needs. Anthropometrics HT: 5 FT WT: 151 LB (68.64 kg) ABW: 113 LB (51.25 kg) BMI: 29.55 (Overweight) GI/ Skin Integrity GI: WNL, Soft, Non-tender BM: 05/10 x1 I/O: 1320/Not Noted Skin: WNL, Intact Drew: 20 Diet Order: Regular Estimated Energy Needs: (ABW) 9971-1635 kcals (20-25 kcals/ kg) 40-50g Pro (0.8-1.0g/kg) 3063-1425 ml (25-30 ml/kg) Current Diet Order/ Nutrition Support Regular Pertinent Medications Lipitor, vitamin D3, Plavix, Colace, Ferrous sulfate, Hydrochlorothiazide, Imodium ( PRN), MOM (PRN) Pertinent Labs 05/04: Hgb/Hct 10.3/30.8, Na 127, Glucose 105, GFR 48 Nutritional Hx/Data Height 5 ft Height (Calculated Centimeters) 152.4 Current Weight (lbs) 151 lb Weight (Calculated Kilograms) 68.5 Weight (Calculated Grams) 09440.4 [place] Body Weight 100 LB (45.45 kg) % [place] Body Weight 151 Body Mass Index (BMI) 29.5 Weight Status Overweight GI Symptoms GI Symptoms None Last BM 05/10 x1 Skin Integrity/Comment: Skin: WNL, Intact Drew: 20 Current %PO Fair (50-74%) Estimated Nutritional Goals BEE in Kcals: Adj wt of IBW Calories/Kcals/Kg 20-25 Kcals Calculated 1990-9210 Protein: Adj wt of IBW Protein g/k.8-1.0 Protein Calculated 40-50 Fluid: ml 3925-2105 ml (25-30 ml/kg) Nutritional Problem 1. Problem Problem No nutrition diagnosis at this time. Etiology N/A Signs/Symptoms: N/A Malnutrition Related to Morbid Obesity Malnutrition related to morbid obesity No Intervention/Recommendation Comments Continue Regular diet as tolerated. Expected Outcomes/Goals Expected Outcomes/Goals 1.PO intake to continue to meet >75% of estimated nutritional needs. 2.Monitor PO intake, wt, nutrition related labs, and skin integrity. 3.F/U as low risk in 7-10 days , 05/18-05/21
[2019-05-15] MEDS: Ferrous Sulfate 325 MG TAB PO SCH ×3 (08:51→21:27)
--- NOTE | 2019-05-15 12:57 | Internal Medicine Prog Note ---
Internal Medicine Subjective - Subjective Service Date: 05/15/19 Patient seen and examined:: with staff Patient is:: awake, arousable, ambulating, agitated, confused Patient Complaints of:: other (History of Migraines.) Per staff patient has:: no adverse event, no episodes of fall Internal Medicine Objective - Physical Exam Vitals and I&O: Vital Signs Temp 97.8 F 05/15/19 06:31 Pulse 54 05/15/19 06:31 Resp 17 05/15/19 08:00 BP 101/52 05/15/19 08:52 Pulse Ox 97 05/15/19 06:31 Intake & Output 05/14/19 05/15/19 05/15/19 18:59 06:59 18:59 Intake Total 850 240 Output Total 1 Balance 850 239 Intake: Oral 850 240 Output: Urine/Stool Mix 1 Other: # Voids 4 3 # Bowel Movements 1 0 Active Medications: Current Medications Acetaminophen (Tylenol) 650 mg PO Q4HR PRN PRN Reason: Pain (Mild 1-3) Stop: 07/11/19 14:11 Last Admin: 05/14/19 14:41 Dose: 650 mg Acetaminophen (Tylenol) 650 mg PO Q4H PRN PRN Reason: Temperature above 101 Stop: 07/11/19 14:11 Atorvastatin Calcium (Lipitor) 40 mg PO HS [facility] Stop: 07/04/19 20:59 Last Admin: 05/14/19 21:14 Dose: 40 mg Cholecalciferol (Vitamin D3) 1,000 iu PO DAILY [facility] Stop: 07/04/19 08:59 Last Admin: 05/15/19 08:51 Dose: 1,000 iu Clopidogrel Bisulfate (Plavix) 37.5 mg PO DAILY [facility] Stop: 07/04/19 08:59 Last Admin: 05/15/19 08:50 Dose: 37.5 mg Cyanocobalamin (Vitamin B12) 1,000 mcg PO DAILY [facility] Stop: 07/04/19 08:59 Last Admin: 05/15/19 08:51 Dose: 1,000 mcg Docusate Sodium (Colace) 100 mg PO DAILY [facility] Stop: 07/04/19 08:59 Last Admin: 05/15/19 08:51 Dose: 100 mg Enalapril Maleate (Vasotec) 10 mg PO HS [facility] Stop: 07/12/19 20:59 Last Admin: 05/14/19 21:15 Dose: 10 mg Ferrous Sulfate (Iron) 325 mg PO TID [facility] Stop: 07/04/19 08:59 Last Admin: 05/15/19 08:51 Dose: 325 mg Guaifenesin (Robitussin) 200 mg PO Q4HR PRN PRN Reason: Cough or Congestion Stop: 07/10/19 15:34 Last Admin: 05/11/19 15:56 Dose: 200 mg Hydrochlorothiazide (Hctz) 25 mg PO DAILY [facility] Stop: 07/04/19 13:59 Last Admin: 05/15/19 08:52 Dose: Not Given Ketotifen Fumarate (Zaditor 0.025% Ophth Soln) 1 drop EACH EYE DAILY [facility] Stop: 07/04/19 08:59 Last Admin: 05/15/19 09:16 Dose: 1 drop Loperamide HCl (Imodium) 2 mg PO DAILY PRN PRN Reason: Diarrhea Stop: 07/08/19 18:47 Last Admin: 05/09/19 20:55 Dose: 2 mg Lorazepam (Ativan) 0.5 mg PO Q4HR PRN; Protocol PRN Reason: Anxiety Stop: 07/04/19 05:10 Last Admin: 05/14/19 23:40 Dose: 0.5 mg Magnesium Hydroxide (Milk Of Magnesia) 30 ml PO DAILY PRN PRN Reason: Constipation Stop: 07/04/19 05:12 Mirtazapine (Remeron) 15 mg PO HS [facility]; Protocol Stop: 07/10/19 20:59 Last Admin: 05/14/19 21:16 Dose: 15 mg Risperidone 1 mg/ Risperidone (0.5 mg) 1.5 mg PO BID [facility] Stop: 07/10/19 08:59 Last Admin: 05/15/19 08:51 Dose: 1.5 mg Sumatriptan Succinate (Imitrex) 50 mg PO TID PRN PRN Reason: MIGRAINE Stop: 07/11/19 14:29 Last Admin: 05/12/19 21:19 Dose: 50 mg Zolpidem Tartrate (Ambien) 5 mg PO HS PRN PRN Reason: Insomnia Stop: 07/04/19 05:10 Last Admin: 05/14/19 21:16 Dose: 5 mg Physical Exam: Patient needs close monitoring, very confused and easily agitated. General: weak, demented, NAD HEENT: NC/AT, PERRLA Neck: Supple, No JVD Lungs: other (no respiratory distress on RA) Cardiovascular: RRR, Normal S1, Normal S2, without murmur Abdomen: soft, non-tender, non-distended Extremities: clear Neurological: no change Internal Medicine Assmt/Plan - Assessment Assessment: Agitated. Increased Anxiety. Paranoia. Migraine Headaches. Hypertension. CAD. Hypercholesterolemia. Insomnia. Depressive mood disorder, unspecified, with psychotic features. - Plan Plan: Psych management as per Psych. Continue present meds as directed. Monitor diet and nutritional support. Supportive care. Monitor vitals and labs. Pain management. Continue current treatment plan as ordered. Nutritional Asmnt/Malnutr-PDOC - Dietary Evaluation Malnutrition Findings (Please click <Entered> for more info): Nutritional Asmnt/Malnutrition Start: 05/11/19 13: 38 Text: Status: Complete Freq: Protocol: Document 05/11/19 13:38 ABDIEL (Rec: 05/11/19 13:41 ABDIEL DE [email or web address]) Nutritional Asmnt/Malnutrition Patient General Information Nutritional Screening Low Risk Diagnosis Psychosis Pertinent Medical Hx/Surgical Hx Migraine, Hyperlipidemia, HTN, CAD, Insomnia, Depression Subjective Information Pt is a 69-year-old female admitted on 05/05 d/t agitation and irritability, unable to follow directions at nursing facility. Pt is eating an estimated 65% of meals x4 days Per Meal/Nutrition Activity Record. Dietary is currently providing an estimated 2300 kcals and 110 gm Pro, per Pt PO intake this is providing an estimated 1500 kcals and 70gm Pro to meet 100+% kcal and 100+% Pro needs. Anthropometrics HT: 5 FT WT: 151 LB (68.64 kg) ABW: 113 LB (51.25 kg) BMI: 29.55 (Overweight) GI/ Skin Integrity GI: WNL, Soft, Non-tender BM: 05/10 x1 I/O: 1320/Not Noted Skin: WNL, Intact Drew: 20 Diet Order: Regular Estimated Energy Needs: (ABW) 1784-6058 kcals (20-25 kcals/ kg) 40-50g Pro (0.8-1.0g/kg) 3177-9891 ml (25-30 ml/kg) Current Diet Order/ Nutrition Support Regular Pertinent Medications Lipitor, vitamin D3, Plavix, Colace, Ferrous sulfate, Hydrochlorothiazide, Imodium ( PRN), MOM (PRN) Pertinent Labs 05/04: Hgb/Hct 10.3/30.8, Na 127, Glucose 105, GFR 48 Nutritional Hx/Data Height 1.52 m Height (Calculated Centimeters) 152.4 Current Weight (lbs) 68.492 kg Weight (Calculated Kilograms) 68.5 Weight (Calculated Grams) 47587.4 [place] Body Weight 100 LB (45.45 kg) % [place] Body Weight 151 Body Mass Index (BMI) 29.5 Weight Status Overweight GI Symptoms GI Symptoms None Last BM 05/10 x1 Skin Integrity/Comment: Skin: WNL, Intact Drew: 20 Current %PO Fair (50-74%) Estimated Nutritional Goals BEE in Kcals: Adj wt of IBW Calories/Kcals/Kg 20-25 Kcals Calculated 8473-3371 Protein: Adj wt of IBW Protein g/k.8-1.0 Protein Calculated 40-50 Fluid: ml 4526-9136 ml (25-30 ml/kg) Nutritional Problem 1. Problem Problem No nutrition diagnosis at this time. Etiology N/A Signs/Symptoms: N/A Malnutrition Related to Morbid Obesity Malnutrition related to morbid obesity No Intervention/Recommendation Comments Continue Regular diet as tolerated. Expected Outcomes/Goals Expected Outcomes/Goals 1.PO intake to continue to meet >75% of estimated nutritional needs. 2.Monitor PO intake, wt, nutrition related labs, and skin integrity. 3.F/U as low risk in 7-10 days , 05/18-05/21
[2019-05-15 16:06] VITALS: BP 139/76
[2019-05-16] MEDS: Ferrous Sulfate 325 MG TAB PO SCH ×3 (08:32→20:55)
--- NOTE | 2019-05-16 09:15 | Progress Notes ---
DATE: SUBJECTIVE: Chart was reviewed and the patient interviewed. Also discussed the patient's condition with the staff and reviewed records and labs. The patient is still in irritable and angry mood. The patient also is still easily agitated and still having severe mood swings. The patient also is still restless and still needs lots of redirections. The patient also is still intrusive to others. Otherwise, the patient is compliant with taking her medications with no side effects. ASSESSMENT: The patient is still agitated and psychotic. TREATMENT PLAN: Continue monitoring behavior and condition closely and continue adjusting psychotropic medications and followup. JOB# [id number]
--- NOTE | 2019-05-16 15:46 | Internal Medicine Prog Note ---
Internal Medicine Subjective - Subjective Service Date: 05/16/19 Patient is:: awake, arousable, ambulating, agitated, confused Patient Complaints of:: other (History of Migraines.) Per staff patient has:: no adverse event, no episodes of fall Internal Medicine Objective - Physical Exam Vitals and I&O: Vital Signs Temp 97.6 F 05/16/19 13:50 Pulse 92 05/16/19 13:50 Resp 20 05/16/19 13:50 BP 128/51 05/16/19 13:50 Pulse Ox 96 05/16/19 13:50 Intake & Output 05/15/19 05/16/19 05/16/19 18:59 06:59 18:59 Intake Total 1200 240 Balance 1200 240 Intake: Oral 960 240 Other 240 Other: # Voids 3 3 # Bowel Movements 1 0 Active Medications: Current Medications Acetaminophen (Tylenol) 650 mg PO Q4HR PRN PRN Reason: Pain (Mild 1-3) Stop: 07/11/19 14:11 Last Admin: 05/14/19 14:41 Dose: 650 mg Acetaminophen (Tylenol) 650 mg PO Q4H PRN PRN Reason: Temperature above 101 Stop: 07/11/19 14:11 Atorvastatin Calcium (Lipitor) 40 mg PO HS [facility] Stop: 07/04/19 20:59 Last Admin: 05/15/19 21:26 Dose: 40 mg Cholecalciferol (Vitamin D3) 1,000 iu PO DAILY ANNY Stop: 07/04/19 08:59 Last Admin: 05/16/19 08:32 Dose: 1,000 iu Clopidogrel Bisulfate (Plavix) 37.5 mg PO DAILY ANNY Stop: 07/04/19 08:59 Last Admin: 05/16/19 08:34 Dose: 37.5 mg Cyanocobalamin (Vitamin B12) 1,000 mcg PO DAILY ANNY Stop: 07/04/19 08:59 Last Admin: 05/16/19 08:32 Dose: 1,000 mcg Docusate Sodium (Colace) 100 mg PO DAILY ANNY Stop: 07/04/19 08:59 Last Admin: 05/16/19 08:32 Dose: 100 mg Enalapril Maleate (Vasotec) 10 mg PO HS [facility] Stop: 07/12/19 20:59 Last Admin: 05/15/19 21:26 Dose: Not Given Ferrous Sulfate (Iron) 325 mg PO TID ANNY Stop: 07/04/19 08:59 Last Admin: 05/16/19 14:20 Dose: 325 mg Guaifenesin (Robitussin) 200 mg PO Q4HR PRN PRN Reason: Cough or Congestion Stop: 07/10/19 15:34 Last Admin: 05/11/19 15:56 Dose: 200 mg Hydrochlorothiazide (Hctz) 25 mg PO DAILY ANNY Stop: 07/04/19 13:59 Last Admin: 05/16/19 08:34 Dose: Not Given Ketotifen Fumarate (Zaditor 0.025% Ophth Soln) 1 drop EACH EYE DAILY ANNY Stop: 07/04/19 08:59 Last Admin: 05/16/19 08:57 Dose: 1 drop Loperamide HCl (Imodium) 2 mg PO DAILY PRN PRN Reason: Diarrhea Stop: 07/08/19 18:47 Last Admin: 05/09/19 20:55 Dose: 2 mg Lorazepam (Ativan) 0.5 mg PO Q4HR PRN; Protocol PRN Reason: Anxiety Stop: 07/04/19 05:10 Last Admin: 05/16/19 02:56 Dose: 0.5 mg Magnesium Hydroxide (Milk Of Magnesia) 30 ml PO DAILY PRN PRN Reason: Constipation Stop: 07/04/19 05:12 Mirtazapine (Remeron) 15 mg PO HS ANNY; Protocol Stop: 07/10/19 20:59 Last Admin: 05/15/19 21:27 Dose: 15 mg Risperidone 1 mg/ Risperidone (0.5 mg) 1.5 mg PO BID ANNY Stop: 07/10/19 08:59 Last Admin: 05/16/19 08:32 Dose: 1.5 mg Sumatriptan Succinate (Imitrex) 50 mg PO TID PRN PRN Reason: MIGRAINE Stop: 07/11/19 14:29 Last Admin: 05/12/19 21:19 Dose: 50 mg Zolpidem Tartrate (Ambien) 5 mg PO HS PRN PRN Reason: Insomnia Stop: 07/04/19 05:10 Last Admin: 05/15/19 21:27 Dose: 5 mg General: weak, demented, NAD HEENT: NC/AT, PERRLA Neck: Supple, No JVD Lungs: other (no respiratory distress on RA) Cardiovascular: RRR, Normal S1, Normal S2, without murmur Abdomen: soft, non-tender, non-distended Extremities: clear Neurological: no change Internal Medicine Assmt/Plan - Assessment Assessment: Agitation Anxiety Migraine HTN CAD Insomnia Depression - Plan Plan: Continue current treatment plan. Continue current medications Continue to monitor VS Monitor Diet/Nutritional support. Psych management per Psychiatry. Pain Management. PT/OT prn Safety precaution, Fall precaution, frequent nursing round. Supportive care. Continue collaborating with consulting specialists, case management and nursing team Nutritional Asmnt/Malnutr-PDOC - Dietary Evaluation Malnutrition Findings (Please click <Entered> for more info): Nutritional Asmnt/Malnutrition Start: 05/11/19 13: 38 Text: Status: Complete Freq: Protocol: Document 05/11/19 13:38 ABDIEL (Rec: 05/11/19 13:41 [email or web address] [email or web address]) Nutritional Asmnt/Malnutrition Patient General Information Nutritional Screening Low Risk Diagnosis Psychosis Pertinent Medical Hx/Surgical Hx Migraine, Hyperlipidemia, HTN, CAD, Insomnia, Depression Subjective Information Pt is a 69-year-old female admitted on 05/05 d/t agitation and irritability, unable to follow directions at nursing facility. Pt is eating an estimated 65% of meals x4 days Per Meal/Nutrition Activity Record. Dietary is currently providing an estimated 2300 kcals and 110 gm Pro, per Pt PO intake this is providing an estimated 1500 kcals and 70gm Pro to meet 100+% kcal and 100+% Pro needs. Anthropometrics HT: 5 FT WT: 151 LB (68.64 kg) ABW: 113 LB (51.25 kg) BMI: 29.55 (Overweight) GI/ Skin Integrity GI: WNL, Soft, Non-tender BM: 05/10 x1 I/O: 1320/Not Noted Skin: WNL, Intact Drew: 20 Diet Order: Regular Estimated Energy Needs: (ABW) 4306-8902 kcals (20-25 kcals/ kg) 40-50g Pro (0.8-1.0g/kg) 4397-9136 ml (25-30 ml/kg) Current Diet Order/ Nutrition Support Regular Pertinent Medications Lipitor, vitamin D3, Plavix, Colace, Ferrous sulfate, Hydrochlorothiazide, Imodium ( PRN), MOM (PRN) Pertinent Labs 05/04: Hgb/Hct 10.3/30.8, Na 127, Glucose 105, GFR 48 Nutritional Hx/Data Height 5 ft Height (Calculated Centimeters) 152.4 Current Weight (lbs) 151 lb Weight (Calculated Kilograms) 68.5 Weight (Calculated Grams) 69577.4 [place] Body Weight 100 LB (45.45 kg) % [place] Body Weight 151 Body Mass Index (BMI) 29.5 Weight Status Overweight GI Symptoms GI Symptoms None Last BM 05/10 x1 Skin Integrity/Comment: Skin: WNL, Intact Drew: 20 Current %PO Fair (50-74%) Estimated Nutritional Goals BEE in Kcals: Adj wt of IBW Calories/Kcals/Kg 20-25 Kcals Calculated 9307-2244 Protein: Adj wt of IBW Protein g/k.8-1.0 Protein Calculated 40-50 Fluid: ml 9145-2892 ml (25-30 ml/kg) Nutritional Problem 1. Problem Problem No nutrition diagnosis at this time. Etiology N/A Signs/Symptoms: N/A Malnutrition Related to Morbid Obesity Malnutrition related to morbid obesity No Intervention/Recommendation Comments Continue Regular diet as tolerated. Expected Outcomes/Goals Expected Outcomes/Goals 1.PO intake to continue to meet >75% of estimated nutritional needs. 2.Monitor PO intake, wt, nutrition related labs, and skin integrity. 3.F/U as low risk in 7-10 days , 05/18-05/21
--- NOTE | 2019-05-16 17:05 | Progress Notes ---
DATE: SUBJECTIVE: Chart was reviewed and the patient interviewed. Also discussed the patient's condition with the staff and reviewed records and labs. The patient continued to mumble and continued to talk to herself. The patient also is demanding and is easily agitated. She also is still restless and is still paranoid about her roommates and about her surroundings in general. She needs lots of redirections. The patient also is rambling about medications and is still thinking that she is taking "too much", but she is compliant with taking her medications. The patient continued to take Remeron 15 mg at bedtime and she continued to take Risperdal 1.5 mg twice a day with no side effects. The patient's gait is steady and vital signs are stable. TREATMENT PLAN: We will continue monitoring behavior and continue to follow up closely. JOB# [id number]
[2019-05-17] MEDS: Ferrous Sulfate 325 MG TAB PO SCH ×3 (08:58→20:41)
--- NOTE | 2019-05-17 15:26 | Internal Medicine Prog Note ---
Internal Medicine Subjective - Subjective Service Date: 05/17/19 Patient seen and examined:: with staff, chart reviewed Patient is:: awake, arousable, ambulating, agitated, confused Patient Complaints of:: other (History of Migraines.) Per staff patient has:: no adverse event, no episodes of fall Internal Medicine Objective - Physical Exam Vitals and I&O: Vital Signs Temp 97.4 F 05/17/19 06:26 Pulse 60 05/17/19 06:26 Resp 17 05/17/19 08:00 BP 116/57 05/17/19 09:00 Pulse Ox 97 05/17/19 06:26 Intake & Output 05/16/19 05/17/19 05/17/19 18:59 06:59 18:59 Intake Total 120 Balance 120 Intake: Oral 120 Other: # Voids 3 3 # Bowel Movements 3 Active Medications: Current Medications Acetaminophen (Tylenol) 650 mg PO Q4HR PRN PRN Reason: Pain (Mild 1-3) Stop: 07/11/19 14:11 Last Admin: 05/14/19 14:41 Dose: 650 mg Acetaminophen (Tylenol) 650 mg PO Q4H PRN PRN Reason: Temperature above 101 Stop: 07/11/19 14:11 Atorvastatin Calcium (Lipitor) 40 mg PO HS [facility] Stop: 07/04/19 20:59 Last Admin: 05/16/19 20:53 Dose: 40 mg Cholecalciferol (Vitamin D3) 1,000 iu PO DAILY AN[facility] Stop: 07/04/19 08:59 Last Admin: 05/17/19 08:58 Dose: 1,000 iu Clopidogrel Bisulfate (Plavix) 37.5 mg PO DAILY [facility] Stop: 07/04/19 08:59 Last Admin: 05/17/19 08:59 Dose: 37.5 mg Cyanocobalamin (Vitamin B12) 1,000 mcg PO DAILY [facility] Stop: 07/04/19 08:59 Last Admin: 05/17/19 08:58 Dose: 1,000 mcg Docusate Sodium (Colace) 100 mg PO DAILY [facility] Stop: 07/04/19 08:59 Last Admin: 05/17/19 08:59 Dose: Not Given Enalapril Maleate (Vasotec) 10 mg PO HS [facility] Stop: 07/12/19 20:59 Last Admin: 05/16/19 20:55 Dose: Not Given Ferrous Sulfate (Iron) 325 mg PO TID [facility] Stop: 07/04/19 08:59 Last Admin: 05/17/19 14:45 Dose: 325 mg Guaifenesin (Robitussin) 200 mg PO Q4HR PRN PRN Reason: Cough or Congestion Stop: 07/10/19 15:34 Last Admin: 05/11/19 15:56 Dose: 200 mg Hydrochlorothiazide (Hctz) 25 mg PO DAILY [facility] Stop: 07/04/19 13:59 Last Admin: 05/17/19 09:00 Dose: Not Given Ketotifen Fumarate (Zaditor 0.025% Ophth Soln) 1 drop EACH EYE DAILY ANNY Stop: 07/04/19 08:59 Last Admin: 05/17/19 08:58 Dose: 1 drop Loperamide HCl (Imodium) 2 mg PO DAILY PRN PRN Reason: Diarrhea Stop: 07/08/19 18:47 Last Admin: 05/16/19 18:29 Dose: 2 mg Lorazepam (Ativan) 0.5 mg PO Q4HR PRN; Protocol PRN Reason: Anxiety Stop: 07/04/19 05:10 Last Admin: 05/16/19 23:25 Dose: 0.5 mg Magnesium Hydroxide (Milk Of Magnesia) 30 ml PO DAILY PRN PRN Reason: Constipation Stop: 07/04/19 05:12 Mirtazapine (Remeron) 15 mg PO HS ANNY; Protocol Stop: 07/10/19 20:59 Last Admin: 05/16/19 20:55 Dose: 15 mg Risperidone 1 mg/ Risperidone (0.5 mg) 1.5 mg PO BID [facility] Stop: 07/10/19 08:59 Last Admin: 05/17/19 08:59 Dose: 1.5 mg Sumatriptan Succinate (Imitrex) 50 mg PO TID PRN PRN Reason: MIGRAINE Stop: 07/11/19 14:29 Last Admin: 05/12/19 21:19 Dose: 50 mg Zolpidem Tartrate (Ambien) 5 mg PO HS PRN PRN Reason: Insomnia Stop: 07/04/19 05:10 Last Admin: 05/16/19 20:56 Dose: 5 mg Physical Exam: Patient needs close monitoring, Irritated, Paranoid, restless and talking to herself. General: weak, demented, NAD HEENT: NC/AT, PERRLA Neck: Supple, No JVD Lungs: other (no respiratory distress on RA) Cardiovascular: RRR, Normal S1, Normal S2, without murmur Abdomen: soft, non-tender, non-distended Extremities: clear Neurological: no change Internal Medicine Assmt/Plan - Assessment Assessment: Agitated. Increased Anxiety. Paranoia. Migraine Headaches. Hypertension. CAD. Hypercholesterolemia. Insomnia. Depressive mood disorder, unspecified, with psychotic features. - Plan Plan: Psych management as per Psych. Continue present meds as directed. Monitor diet and nutritional support. Supportive care. Monitor vitals and labs. Pain management. Continue current treatment plan as ordered. Nutritional Asmnt/Malnutr-PDOC - Dietary Evaluation Malnutrition Findings (Please click <Entered> for more info): Nutritional Asmnt/Malnutrition Start: 05/11/19 13: 38 Text: Status: Complete Freq: Protocol: Document 05/11/19 13:38 ABDIEL (Rec: 05/11/19 13:41 ABDIEL DE [id number]) Nutritional Asmnt/Malnutrition Patient General Information Nutritional Screening Low Risk Diagnosis Psychosis Pertinent Medical Hx/Surgical Hx Migraine, Hyperlipidemia, HTN, CAD, Insomnia, Depression Subjective Information Pt is a 69-year-old female admitted on 05/05 d/t agitation and irritability, unable to follow directions at nursing facility. Pt is eating an estimated 65% of meals x4 days Per Meal/Nutrition Activity Record. Dietary is currently providing an estimated 2300 kcals and 110 gm Pro, per Pt PO intake this is providing an estimated 1500 kcals and 70gm Pro to meet 100+% kcal and 100+% Pro needs. Anthropometrics HT: 5 FT WT: 151 LB (68.64 kg) ABW: 113 LB (51.25 kg) BMI: 29.55 (Overweight) GI/ Skin Integrity GI: WNL, Soft, Non-tender BM: 05/10 x1 I/O: 1320/Not Noted Skin: WNL, Intact Drew: 20 Diet Order: Regular Estimated Energy Needs: (ABW) 6975-9133 kcals (20-25 kcals/ kg) 40-50g Pro (0.8-1.0g/kg) 4445-5302 ml (25-30 ml/kg) Current Diet Order/ Nutrition Support Regular Pertinent Medications Lipitor, vitamin D3, Plavix, Colace, Ferrous sulfate, Hydrochlorothiazide, Imodium ( PRN), MOM (PRN) Pertinent Labs 05/04: Hgb/Hct 10.3/30.8, Na 127, Glucose 105, GFR 48 Nutritional Hx/Data Height 1.52 m Height (Calculated Centimeters) 152.4 Current Weight (lbs) 68.492 kg Weight (Calculated Kilograms) 68.5 Weight (Calculated Grams) 34138.4 [place] Body Weight 100 LB (45.45 kg) % [place] Body Weight 151 Body Mass Index (BMI) 29.5 Weight Status Overweight GI Symptoms GI Symptoms None Last BM 05/10 x1 Skin Integrity/Comment: Skin: WNL, Intact Drew: 20 Current %PO Fair (50-74%) Estimated Nutritional Goals BEE in Kcals: Adj wt of IBW Calories/Kcals/Kg 20-25 Kcals Calculated 2527-4783 Protein: Adj wt of IBW Protein g/k.8-1.0 Protein Calculated 40-50 Fluid: ml 8841-1084 ml (25-30 ml/kg) Nutritional Problem 1. Problem Problem No nutrition diagnosis at this time. Etiology N/A Signs/Symptoms: N/A Malnutrition Related to Morbid Obesity Malnutrition related to morbid obesity No Intervention/Recommendation Comments Continue Regular diet as tolerated. Expected Outcomes/Goals Expected Outcomes/Goals 1.PO intake to continue to meet >75% of estimated nutritional needs. 2.Monitor PO intake, wt, nutrition related labs, and skin integrity. 3.F/U as low risk in 7-10 days , 05/18-05/21
--- NOTE | 2019-05-18 03:05 | Progress Notes ---
DATE: SUBJECTIVE: Chart reviewed and the patient interviewed. Also discussed the patient's condition with the staff and reviewed records and labs. The patient is still actively hallucinating and still mumbles and talking to herself. The patient also is still easily agitated, irritable and angry mood. She also still needs lots of redirections with difficulty following directions. The patient on the other hand seems to be slightly less intrusive and has been compliant with taking her medications. ASSESSMENT: The patient is still psychotic, but slightly less agitated and less aggressive. TREATMENT PLAN: We will continue monitoring behavior and condition closely. Also continue ____ and continue to work on her impulsivity and psychosis and continue ____. JOB# [id number]
[2019-05-18] MEDS: Ferrous Sulfate 325 MG TAB PO SCH ×3 (08:21→20:49)
--- NOTE | 2019-05-18 08:49 | Progress Notes ---
DATE: 05/18/2019 SUBJECTIVE: Chart was reviewed and the patient interviewed. Also discussed the patient's condition with the staff and reviewed records and labs. The patient is still in irritable and angry mood and is easily agitated. The patient also is still suspicious and is still paranoid. The patient also is forgetful and needs lots of redirections, but at the same time, the patient is demanding. Otherwise, the patient is compliant with taking her medications, but she is still psychotic and talking to herself, rambling and needs lots of redirections. Yesterday, staff reports that the patient kept pushing the call lights for no apparent reason and when they tried to answer her, she had no needs for pushing the call light. ASSESSMENT: The patient is still psychotic and agitated. TREATMENT PLAN: Continue to monitor the patient's behavior and condition closely. Also, continue adjusting psychotropic medications and work on behavioral modification. JOB# [id number]
--- NOTE | 2019-05-18 13:27 | Internal Medicine Prog Note ---
Internal Medicine Subjective - Subjective Service Date: 05/18/19 Patient is:: awake, arousable, ambulating, agitated, confused Patient Complaints of:: other (History of Migraines.) Per staff patient has:: no adverse event, no episodes of fall Internal Medicine Objective - Physical Exam Vitals and I&O: Vital Signs Temp 97.4 F 05/18/19 06:16 Pulse 55 05/18/19 06:16 Resp 17 05/18/19 07:21 BP 109/53 05/18/19 08:23 Pulse Ox 97 05/18/19 06:16 Intake & Output 05/17/19 05/18/19 05/18/19 18:59 06:59 18:59 Intake Total 1500 120 Balance 1500 120 Intake: Oral 1500 120 Other: # Voids 3 2 # Bowel Movements 0 0 Active Medications: Current Medications Acetaminophen (Tylenol) 650 mg PO Q4HR PRN PRN Reason: Pain (Mild 1-3) Stop: 07/11/19 14:11 Last Admin: 05/18/19 08:22 Dose: 650 mg Acetaminophen (Tylenol) 650 mg PO Q4H PRN PRN Reason: Temperature above 101 Stop: 07/11/19 14:11 Atorvastatin Calcium (Lipitor) 40 mg PO HS [facility] Stop: 07/04/19 20:59 Last Admin: 05/17/19 20:39 Dose: 40 mg Cholecalciferol (Vitamin D3) 1,000 iu PO DAILY AN[facility] Stop: 07/04/19 08:59 Last Admin: 05/18/19 08:22 Dose: 1,000 iu Clopidogrel Bisulfate (Plavix) 37.5 mg PO DAILY [facility] Stop: 07/04/19 08:59 Last Admin: 05/18/19 08:21 Dose: 37.5 mg Cyanocobalamin (Vitamin B12) 1,000 mcg PO DAILY [facility] Stop: 07/04/19 08:59 Last Admin: 05/18/19 08:22 Dose: 1,000 mcg Docusate Sodium (Colace) 100 mg PO DAILY [facility] Stop: 07/04/19 08:59 Last Admin: 05/18/19 08:21 Dose: 100 mg Enalapril Maleate (Vasotec) 10 mg PO HS [facility] Stop: 07/12/19 20:59 Last Admin: 05/17/19 20:40 Dose: 10 mg Ferrous Sulfate (Iron) 325 mg PO TID [facility] Stop: 07/04/19 08:59 Last Admin: 05/18/19 08:21 Dose: 325 mg Guaifenesin (Robitussin) 200 mg PO Q4HR PRN PRN Reason: Cough or Congestion Stop: 07/10/19 15:34 Last Admin: 05/11/19 15:56 Dose: 200 mg Hydrochlorothiazide (Hctz) 25 mg PO DAILY [facility] Stop: 07/04/19 13:59 Last Admin: 05/18/19 08:23 Dose: Not Given Ketotifen Fumarate (Zaditor 0.025% Ophth Soln) 1 drop EACH EYE DAILY [facility] Stop: 07/04/19 08:59 Last Admin: 05/18/19 08:35 Dose: 1 drop Loperamide HCl (Imodium) 2 mg PO DAILY PRN PRN Reason: Diarrhea Stop: 07/08/19 18:47 Last Admin: 05/16/19 18:29 Dose: 2 mg Lorazepam (Ativan) 0.5 mg PO Q4HR PRN; Protocol PRN Reason: Anxiety Stop: 07/04/19 05:10 Last Admin: 05/18/19 08:21 Dose: 0.5 mg Magnesium Hydroxide (Milk Of Magnesia) 30 ml PO DAILY PRN PRN Reason: Constipation Stop: 07/04/19 05:12 Mirtazapine (Remeron) 15 mg PO HS AN[facility]; Protocol Stop: 07/10/19 20:59 Last Admin: 05/17/19 20:41 Dose: 15 mg Risperidone (Risperdal) 2 mg PO BID [facility] Stop: 07/17/19 08:59 Last Admin: 05/18/19 08:41 Dose: 2 mg Sumatriptan Succinate (Imitrex) 50 mg PO TID PRN PRN Reason: MIGRAINE Stop: 07/11/19 14:29 Last Admin: 05/12/19 21:19 Dose: 50 mg Zolpidem Tartrate (Ambien) 5 mg PO HS PRN PRN Reason: Insomnia Stop: 07/04/19 05:10 Last Admin: 05/17/19 20:39 Dose: 5 mg General: weak, demented, NAD HEENT: NC/AT, PERRLA Neck: Supple, No JVD Lungs: other (no respiratory distress on RA) Cardiovascular: RRR, Normal S1, Normal S2, without murmur Abdomen: soft, non-tender, non-distended Extremities: clear Neurological: no change Internal Medicine Assmt/Plan - Assessment Assessment: Agitation Anxiety Migraine HTN CAD Insomnia Depression - Plan Plan: Continue current treatment plan. Continue current medications Continue to monitor VS Monitor Diet/Nutritional support. Psych management per Psychiatry. Pain Management. PT/OT prn Safety precaution, Fall precaution, frequent nursing round. Supportive care. Continue collaborating with consulting specialists, case management and nursing team Nutritional Asmnt/Malnutr-PDOC - Dietary Evaluation Malnutrition Findings (Please click <Entered> for more info): Nutritional Asmnt/Malnutrition Start: 05/11/19 13: 38 Text: Status: Complete Freq: Protocol: Document 05/11/19 13:38 ABDIEL (Rec: 05/11/19 13:41 ABDIEL [email or web address]) Nutritional Asmnt/Malnutrition Patient General Information Nutritional Screening Low Risk Diagnosis Psychosis Pertinent Medical Hx/Surgical Hx Migraine, Hyperlipidemia, HTN, CAD, Insomnia, Depression Subjective Information Pt is a 69-year-old female admitted on 05/05 d/t agitation and irritability, unable to follow directions at nursing facility. Pt is eating an estimated 65% of meals x4 days Per Meal/Nutrition Activity Record. Dietary is currently providing an estimated 2300 kcals and 110 gm Pro, per Pt PO intake this is providing an estimated 1500 kcals and 70gm Pro to meet 100+% kcal and 100+% Pro needs. Anthropometrics HT: 5 FT WT: 151 LB (68.64 kg) ABW: 113 LB (51.25 kg) BMI: 29.55 (Overweight) GI/ Skin Integrity GI: WNL, Soft, Non-tender BM: 05/10 x1 I/O: 1320/Not Noted Skin: WNL, Intact Drew: 20 Diet Order: Regular Estimated Energy Needs: (ABW) 3551-9245 kcals (20-25 kcals/ kg) 40-50g Pro (0.8-1.0g/kg) 8308-1293 ml (25-30 ml/kg) Current Diet Order/ Nutrition Support Regular Pertinent Medications Lipitor, vitamin D3, Plavix, Colace, Ferrous sulfate, Hydrochlorothiazide, Imodium ( PRN), MOM (PRN) Pertinent Labs 05/04: Hgb/Hct 10.3/30.8, Na 127, Glucose 105, GFR 48 Nutritional Hx/Data Height 5 ft Height (Calculated Centimeters) 152.4 Current Weight (lbs) 151 lb Weight (Calculated Kilograms) 68.5 Weight (Calculated Grams) 26856.4 [place] Body Weight 100 LB (45.45 kg) % [place] Body Weight 151 Body Mass Index (BMI) 29.5 Weight Status Overweight GI Symptoms GI Symptoms None Last BM 05/10 x1 Skin Integrity/Comment: Skin: WNL, Intact Drew: 20 Current %PO Fair (50-74%) Estimated Nutritional Goals BEE in Kcals: Adj wt of IBW Calories/Kcals/Kg 20-25 Kcals Calculated 6694-0525 Protein: Adj wt of IBW Protein g/k.8-1.0 Protein Calculated 40-50 Fluid: ml 6560-6467 ml (25-30 ml/kg) Nutritional Problem 1. Problem Problem No nutrition diagnosis at this time. Etiology N/A Signs/Symptoms: N/A Malnutrition Related to Morbid Obesity Malnutrition related to morbid obesity No Intervention/Recommendation Comments Continue Regular diet as tolerated. Expected Outcomes/Goals Expected Outcomes/Goals 1.PO intake to continue to meet >75% of estimated nutritional needs. 2.Monitor PO intake, wt, nutrition related labs, and skin integrity. 3.F/U as low risk in 7-10 days , 05/18-05/21
[2019-05-19] MEDS: Ferrous Sulfate 325 MG TAB PO SCH ×3 (08:34→20:34)
--- NOTE | 2019-05-19 11:50 | Internal Medicine Prog Note ---
Internal Medicine Subjective - Subjective Service Date: 05/19/19 Patient seen and examined:: with staff Patient is:: awake, arousable, ambulating, agitated, confused Patient Complaints of:: other (History of Migraines.) Per staff patient has:: no adverse event, no episodes of fall Internal Medicine Objective - Physical Exam Vitals and I&O: Vital Signs Temp 96.3 F 05/19/19 06:11 Pulse 55 05/19/19 06:11 Resp 17 05/19/19 07:33 BP 117/57 05/19/19 08:35 Pulse Ox 91 05/19/19 06:11 Intake & Output 05/18/19 05/19/19 05/19/19 18:59 06:59 18:59 Intake Total 1200 400 Output Total 1 Balance 1200 399 Intake: Oral 1200 400 Output: Urine/Stool Mix 1 Other: # Voids 2 # Bowel Movements 1 0 Active Medications: Current Medications Acetaminophen (Tylenol) 650 mg PO Q4HR PRN PRN Reason: Pain (Mild 1-3) Stop: 07/11/19 14:11 Last Admin: 05/19/19 08:32 Dose: 650 mg Acetaminophen (Tylenol) 650 mg PO Q4H PRN PRN Reason: Temperature above 101 Stop: 07/11/19 14:11 Atorvastatin Calcium (Lipitor) 40 mg PO HS [facility] Stop: 07/04/19 20:59 Last Admin: 05/18/19 20:47 Dose: 40 mg Cholecalciferol (Vitamin D3) 1,000 iu PO DAILY [facility] Stop: 07/04/19 08:59 Last Admin: 05/19/19 08:33 Dose: 1,000 iu Clopidogrel Bisulfate (Plavix) 37.5 mg PO DAILY [facility] Stop: 07/04/19 08:59 Last Admin: 05/19/19 08:31 Dose: 37.5 mg Cyanocobalamin (Vitamin B12) 1,000 mcg PO DAILY [facility] Stop: 07/04/19 08:59 Last Admin: 05/19/19 08:34 Dose: 1,000 mcg Docusate Sodium (Colace) 100 mg PO DAILY [facility] Stop: 07/04/19 08:59 Last Admin: 05/19/19 08:31 Dose: 100 mg Enalapril Maleate (Vasotec) 10 mg PO HS [facility] Stop: 07/12/19 20:59 Last Admin: 05/18/19 20:48 Dose: Not Given Ferrous Sulfate (Iron) 325 mg PO TID ANNY Stop: 07/04/19 08:59 Last Admin: 05/19/19 08:34 Dose: 325 mg Guaifenesin (Robitussin) 200 mg PO Q4HR PRN PRN Reason: Cough or Congestion Stop: 07/10/19 15:34 Last Admin: 05/11/19 15:56 Dose: 200 mg Hydrochlorothiazide (Hctz) 25 mg PO DAILY ANNY Stop: 07/04/19 13:59 Last Admin: 05/19/19 08:35 Dose: Not Given Ketotifen Fumarate (Zaditor 0.025% Ophth Soln) 1 drop EACH EYE DAILY ANNY Stop: 07/04/19 08:59 Last Admin: 05/19/19 08:35 Dose: 1 drop Loperamide HCl (Imodium) 2 mg PO DAILY PRN PRN Reason: Diarrhea Stop: 07/08/19 18:47 Last Admin: 05/16/19 18:29 Dose: 2 mg Lorazepam (Ativan) 0.5 mg PO Q4HR PRN; Protocol PRN Reason: Anxiety Stop: 07/04/19 05:10 Last Admin: 05/19/19 08:33 Dose: 0.5 mg Magnesium Hydroxide (Milk Of Magnesia) 30 ml PO DAILY PRN PRN Reason: Constipation Stop: 07/04/19 05:12 Mirtazapine (Remeron) 15 mg PO HS [facility]; Protocol Stop: 07/10/19 20:59 Last Admin: 05/18/19 20:49 Dose: 15 mg Risperidone (Risperdal) 2 mg PO BID ANNY Stop: 07/17/19 08:59 Last Admin: 05/19/19 08:33 Dose: 2 mg Sumatriptan Succinate (Imitrex) 50 mg PO TID PRN PRN Reason: MIGRAINE Stop: 07/11/19 14:29 Last Admin: 05/12/19 21:19 Dose: 50 mg Zolpidem Tartrate (Ambien) 5 mg PO HS PRN PRN Reason: Insomnia Stop: 07/04/19 05:10 Last Admin: 05/18/19 22:29 Dose: 5 mg Physical Exam: Patient needs close monitoring, still delusional, talking to herself, easily frustrated and very confused. General: weak, demented, NAD HEENT: NC/AT, PERRLA Neck: Supple, No JVD Lungs: other (no respiratory distress on RA) Cardiovascular: RRR, Normal S1, Normal S2, without murmur Abdomen: soft, non-tender, non-distended Extremities: clear Neurological: no change Internal Medicine Assmt/Plan - Assessment Assessment: Agitated. Increased Anxiety. Paranoia. Migraine Headaches. Hypertension. CAD. Hypercholesterolemia. Insomnia. Depressive mood disorder, unspecified, with psychotic features. - Plan Plan: Psych management as per Psych. Continue present meds as directed. Monitor diet and nutritional support. Supportive care. Monitor vitals and labs. Pain management. Continue current treatment plan as ordered. Nutritional Asmnt/Malnutr-PDOC - Dietary Evaluation Malnutrition Findings (Please click <Entered> for more info): Nutritional Asmnt/Malnutrition Start: 05/11/19 13: 38 Text: Status: Complete Freq: Protocol: Document 05/11/19 13:38 ABDIEL (Rec: 05/11/19 13:41 [email or web address] DE [email or web address] [id number]) Nutritional Asmnt/Malnutrition Patient General Information Nutritional Screening Low Risk Diagnosis Psychosis Pertinent Medical Hx/Surgical Hx Migraine, Hyperlipidemia, HTN, CAD, Insomnia, Depression Subjective Information Pt is a 69-year-old female admitted on 05/05 d/t agitation and irritability, unable to follow directions at nursing facility. Pt is eating an estimated 65% of meals x4 days Per Meal/Nutrition Activity Record. Dietary is currently providing an estimated 2300 kcals and 110 gm Pro, per Pt PO intake this is providing an estimated 1500 kcals and 70gm Pro to meet 100+% kcal and 100+% Pro needs. Anthropometrics HT: 5 FT WT: 151 LB (68.64 kg) ABW: 113 LB (51.25 kg) BMI: 29.55 (Overweight) GI/ Skin Integrity GI: WNL, Soft, Non-tender BM: 05/10 x1 I/O: 1320/Not Noted Skin: WNL, Intact Drew: 20 Diet Order: Regular Estimated Energy Needs: (ABW) 8309-6198 kcals (20-25 kcals/ kg) 40-50g Pro (0.8-1.0g/kg) 1618-1452 ml (25-30 ml/kg) Current Diet Order/ Nutrition Support Regular Pertinent Medications Lipitor, vitamin D3, Plavix, Colace, Ferrous sulfate, Hydrochlorothiazide, Imodium ( PRN), MOM (PRN) Pertinent Labs 05/04: Hgb/Hct 10.3/30.8, Na 127, Glucose 105, GFR 48 Nutritional Hx/Data Height 1.52 m Height (Calculated Centimeters) 152.4 Current Weight (lbs) 68.492 kg Weight (Calculated Kilograms) 68.5 Weight (Calculated Grams) 10785.4 [place] Body Weight 100 LB (45.45 kg) % [place] Body Weight 151 Body Mass Index (BMI) 29.5 Weight Status Overweight GI Symptoms GI Symptoms None Last BM 05/10 x1 Skin Integrity/Comment: Skin: WNL, Intact Drew: 20 Current %PO Fair (50-74%) Estimated Nutritional Goals BEE in Kcals: Adj wt of IBW Calories/Kcals/Kg 20-25 Kcals Calculated 8201-8887 Protein: Adj wt of IBW Protein g/k.8-1.0 Protein Calculated 40-50 Fluid: ml 2927-5852 ml (25-30 ml/kg) Nutritional Problem 1. Problem Problem No nutrition diagnosis at this time. Etiology N/A Signs/Symptoms: N/A Malnutrition Related to Morbid Obesity Malnutrition related to morbid obesity No Intervention/Recommendation Comments Continue Regular diet as tolerated. Expected Outcomes/Goals Expected Outcomes/Goals 1.PO intake to continue to meet >75% of estimated nutritional needs. 2.Monitor PO intake, wt, nutrition related labs, and skin integrity. 3.F/U as low risk in 7-10 days , 05/18-05/21
--- NOTE | 2019-05-19 21:42 | Progress Notes ---
DATE: 05/19/2019 PSYCHIATRIC PROGRESS NOTE SUBJECTIVE: Chart was reviewed and the patient interviewed. Also discussed the patient's condition with the staff and reviewed records and labs. The patient continued to mumbles and talking to herself. The patient also is still forgetful and anxious and restless and has difficulty expressing herself or expressing her feelings. She also is still suspicious and paranoid and argumentative. Otherwise, the patient is compliant with taking her medications with no side effects of medications. Also, during interview, the patient is hyperverbal and paranoid and seems to be responding to stimuli and gets easily agitated. ASSESSMENT: The patient is still psychotic and needs lots of redirections. TREATMENT PLAN: Continue Risperdal 3 mg twice a day and Remeron 15 mg at bedtime. Also, continue to work on behavioral modification and follow up closely. JOB# [id number]
[2019-05-20] MEDS: Ferrous Sulfate 325 MG TAB PO SCH ×4 (08:55→21:45)
--- NOTE | 2019-05-21 01:44 | Progress Notes ---
DATE: 05/20/2019 SUBJECTIVE: The patient was seen and evaluated. The patient's chart reviewed. This is psychiatric followup, covering for Dr. Stroud. IDENTIFYING DATA: A 69-year-old female brought in here from [facility] after increased agitation and increased anxiety. Current medication reconciliation reviewed, includes Remeron 15 at bedtime, Risperdal 2 mg p.o. b.i.d. Nursing staff overnight noted the patient has been isolating, withdrawn, disengaged, easily agitated. Today on [id number] evaluation, observed to be easily restless, agitated, still angry and irritable, needing lot of conversation redirection as she screams upon approach. ASSESSMENT AND PLAN: Major depressive disorder with psychosis. We will continue with the current medication dosages as it was recently adjusted. Continue to reach steady state. JOB# [id number]
[2019-05-21] MEDS: Ferrous Sulfate 325 MG TAB PO SCH ×3 (08:44→21:05)
--- NOTE | 2019-05-22 02:45 | Progress Notes ---
DATE: SUBJECTIVE: Nursing staff reporting that the patient needs a lot of redirections, breathlessness, easily agitated. Today on [id number] evaluation, refuses to be interviewed, dismisses meal avoiding in the interview. MENTAL STATUS EXAMINATION: Avoiding breathlessness, certainly preoccupied. ASSESSMENT AND PLAN: The patient ____ easily suspicious and certainly preoccupied. We will continue with primary psychiatrist's treatment plan and goals of risperidone 2 mg p.o. b.i.d., mirtazapine 15. JOB# [id number]
[2019-05-22] MEDS: Ferrous Sulfate 325 MG TAB PO SCH ×2 (09:31→13:48)
--- NOTE | 2019-05-22 11:21 | Internal Medicine Prog Note ---
Internal Medicine Subjective - Subjective Service Date: 05/22/19 Patient seen and examined:: with staff, chart reviewed Patient is:: awake, arousable, ambulating, agitated, confused Patient Complaints of:: other (History of Migraines.) Per staff patient has:: no adverse event, no episodes of fall Internal Medicine Objective - Physical Exam Vitals and I&O: Vital Signs Temp 97.6 F 05/21/19 20:22 Pulse 66 05/21/19 21:04 Resp 18 05/22/19 08:00 BP 100/51 05/22/19 09:31 Pulse Ox 97 05/21/19 20:22 Intake & Output 05/21/19 05/22/19 05/22/19 18:59 06:59 18:59 Intake Total 240 Balance 240 Intake: Oral 240 Other: # Voids 3 2 # Bowel Movements 1 Active Medications: Current Medications Acetaminophen (Tylenol) 650 mg PO Q4HR PRN PRN Reason: Pain (Mild 1-3) Stop: 07/11/19 14:11 Last Admin: 05/20/19 15:04 Dose: 650 mg Acetaminophen (Tylenol) 650 mg PO Q4H PRN PRN Reason: Temperature above 101 Stop: 07/11/19 14:11 Atorvastatin Calcium (Lipitor) 40 mg PO HS [facility] Stop: 07/04/19 20:59 Last Admin: 05/21/19 21:04 Dose: 40 mg Cholecalciferol (Vitamin D3) 1,000 iu PO DAILY [facility] Stop: 07/04/19 08:59 Last Admin: 05/22/19 09:32 Dose: 1,000 iu Clopidogrel Bisulfate (Plavix) 37.5 mg PO DAILY [facility] Stop: 07/04/19 08:59 Last Admin: 05/22/19 09:31 Dose: 37.5 mg Cyanocobalamin (Vitamin B12) 1,000 mcg PO DAILY [facility] Stop: 07/04/19 08:59 Last Admin: 05/22/19 09:32 Dose: 1,000 mcg Docusate Sodium (Colace) 100 mg PO DAILY [facility] Stop: 07/04/19 08:59 Last Admin: 05/22/19 09:32 Dose: 100 mg Enalapril Maleate (Vasotec) 10 mg PO HS [facility] Stop: 07/12/19 20:59 Last Admin: 05/21/19 21:04 Dose: Not Given Ferrous Sulfate (Iron) 325 mg PO TID [facility] Stop: 07/04/19 08:59 Last Admin: 05/22/19 09:31 Dose: 325 mg Guaifenesin (Robitussin) 200 mg PO Q4HR PRN PRN Reason: Cough or Congestion Stop: 07/10/19 15:34 Last Admin: 05/11/19 15:56 Dose: 200 mg Hydrochlorothiazide (Hctz) 25 mg PO DAILY [facility] Stop: 07/04/19 13:59 Last Admin: 05/22/19 09:31 Dose: Not Given Ketotifen Fumarate (Zaditor 0.025% Ophth Soln) 1 drop EACH EYE DAILY [facility] Stop: 07/04/19 08:59 Last Admin: 05/22/19 09:30 Dose: 1 drop Loperamide HCl (Imodium) 2 mg PO DAILY PRN PRN Reason: Diarrhea Stop: 07/08/19 18:47 Last Admin: 05/16/19 18:29 Dose: 2 mg Lorazepam (Ativan) 0.5 mg PO Q4HR PRN; Protocol PRN Reason: Anxiety Stop: 07/04/19 05:10 Last Admin: 05/21/19 08:43 Dose: 0.5 mg Magnesium Hydroxide (Milk Of Magnesia) 30 ml PO DAILY PRN PRN Reason: Constipation Stop: 07/04/19 05:12 Mirtazapine (Remeron) 15 mg PO HS [facility]; Protocol Stop: 07/10/19 20:59 Last Admin: 05/21/19 21:06 Dose: 15 mg Risperidone (Risperdal) 2 mg PO BID [facility] Stop: 07/17/19 08:59 Last Admin: 05/22/19 09:32 Dose: 2 mg Sumatriptan Succinate (Imitrex) 50 mg PO TID PRN PRN Reason: MIGRAINE Stop: 07/11/19 14:29 Last Admin: 05/22/19 09:30 Dose: 50 mg Zolpidem Tartrate (Ambien) 5 mg PO HS PRN PRN Reason: Insomnia Stop: 07/04/19 05:10 Last Admin: 05/21/19 21:06 Dose: 5 mg Physical Exam: Patient needs close monitoring, very paranoid, confused, easily agitated. General: weak, demented, NAD HEENT: NC/AT, PERRLA Neck: Supple, No JVD Lungs: other (no respiratory distress on RA) Cardiovascular: RRR, Normal S1, Normal S2, without murmur Abdomen: soft, non-tender, non-distended Extremities: clear Neurological: no change Internal Medicine Assmt/Plan - Assessment Assessment: Agitated. Increased Anxiety. Paranoia. Migraine Headaches. Hypertension. CAD. Hypercholesterolemia. Insomnia. Depressive mood disorder, unspecified, with psychotic features. - Plan Plan: Psych management as per Psych. Continue present meds as directed. Monitor diet and nutritional support. Supportive care. Monitor vitals and labs. Pain management. Continue current treatment plan as ordered. Nutritional Asmnt/Malnutr-PDOC - Dietary Evaluation Malnutrition Findings (Please click <Entered> for more info): Nutritional Asmnt/Malnutrition Start: 05/11/19 13: 38 Text: Status: Complete Freq: Protocol: Document 05/11/19 13:38 ABDIEL (Rec: 05/11/19 13:41 ABDIEL DE [id number]) Nutritional Asmnt/Malnutrition Patient General Information Nutritional Screening Low Risk Diagnosis Psychosis Pertinent Medical Hx/Surgical Hx Migraine, Hyperlipidemia, HTN, CAD, Insomnia, Depression Subjective Information Pt is a 69-year-old female admitted on 05/05 d/t agitation and irritability, unable to follow directions at nursing facility. Pt is eating an estimated 65% of meals x4 days Per Meal/Nutrition Activity Record. Dietary is currently providing an estimated 2300 kcals and 110 gm Pro, per Pt PO intake this is providing an estimated 1500 kcals and 70gm Pro to meet 100+% kcal and 100+% Pro needs. Anthropometrics HT: 5 FT WT: 151 LB (68.64 kg) ABW: 113 LB (51.25 kg) BMI: 29.55 (Overweight) GI/ Skin Integrity GI: WNL, Soft, Non-tender BM: 05/10 x1 I/O: 1320/Not Noted Skin: WNL, Intact Drew: 20 Diet Order: Regular Estimated Energy Needs: (ABW) 1122-6150 kcals (20-25 kcals/ kg) 40-50g Pro (0.8-1.0g/kg) 1203-9908 ml (25-30 ml/kg) Current Diet Order/ Nutrition Support Regular Pertinent Medications Lipitor, vitamin D3, Plavix, Colace, Ferrous sulfate, Hydrochlorothiazide, Imodium ( PRN), MOM (PRN) Pertinent Labs 05/04: Hgb/Hct 10.3/30.8, Na 127, Glucose 105, GFR 48 Nutritional Hx/Data Height 1.52 m Height (Calculated Centimeters) 152.4 Current Weight (lbs) 68.492 kg Weight (Calculated Kilograms) 68.5 Weight (Calculated Grams) 16550.4 [place] Body Weight 100 LB (45.45 kg) % [place] Body Weight 151 Body Mass Index (BMI) 29.5 Weight Status Overweight GI Symptoms GI Symptoms None Last BM 05/10 x1 Skin Integrity/Comment: Skin: WNL, Intact Drew: 20 Current %PO Fair (50-74%) Estimated Nutritional Goals BEE in Kcals: Adj wt of IBW Calories/Kcals/Kg 20-25 Kcals Calculated 2826-8222 Protein: Adj wt of IBW Protein g/k.8-1.0 Protein Calculated 40-50 Fluid: ml 2147-1155 ml (25-30 ml/kg) Nutritional Problem 1. Problem Problem No nutrition diagnosis at this time. Etiology N/A Signs/Symptoms: N/A Malnutrition Related to Morbid Obesity Malnutrition related to morbid obesity No Intervention/Recommendation Comments Continue Regular diet as tolerated. Expected Outcomes/Goals Expected Outcomes/Goals 1.PO intake to continue to meet >75% of estimated nutritional needs. 2.Monitor PO intake, wt, nutrition related labs, and skin integrity. 3.F/U as low risk in 7-10 days , 05/18-05/21
--- NOTE | 2019-05-22 19:23 | Discharge Summary ---
DATE OF DISCHARGE: 05/22/2019 AGE: 69. SEX: Female. PHYSICIAN: Dr. Stroud. FINAL DIAGNOSIS/PRIMARY DIAGNOSIS: Schizoaffective disorder, depressed episode, severe, with psychotic features. MEDICAL DIAGNOSES: 1. Hypercholesterolemia. 2. Migraine headaches. 3. Hypertension 4. Coronary artery disease. REASON FOR HOSPITALIZATION: The patient was admitted to the hospital because of increased agitation and anxiety as well as depression. HOSPITAL COURSE: The patient continued to be agitated with mood swings. The patient also was guarded and withdrawn. She interacted minimally with others. The patient also was suspicious and paranoid at times and other times was left alone. The patient was given Remeron in a dose of 15 mg at bedtime and Risperdal adjusted to 2 mg twice a day. Gradually, the patient's affect was brighter. The patient was less irritable and less agitated and the patient was returned back to [facility]. PHYSICAL EXAMINATION: The patient came as mentioned under final diagnosis. The patient had no major medical issues while in the hospital. AFTER DISCHARGE PLANS: The patient discharged from the hospital back to [facility] with plan to follow her there. EXPECTED OUTCOME AFTER DISCHARGE: Is fair if the patient continues with outpatient treatment and follow up with discharge plans. JOB# [id number]
== END 2019-05-22 19:35 | DRG 885 ==
LOC: GERO 05-05 02:45
PROVIDERS: ADMIT Psychiatry & Neurology Psychiatry; ATTEND Psychiatry & Neurology Psychiatry
DX: F32.3 Major depressive disorder, single episode, severe with psychotic features (principal); E78.00 Pure hypercholesterolemia, unspecified; I10 Essential (primary) hypertension; I25.10 Atherosclerotic heart disease of native coronary artery without angina pectoris; G43.909 Migraine, unspecified, not intractable, without status migrainosus; G47.00 Insomnia, unspecified; F41.9 Anxiety disorder, unspecified; E78.5 Hyperlipidemia, unspecified; Z79.899 Other long term (current) drug therapy; Z88.5 Allergy status to narcotic agent; Z88.8 Allergy status to other drugs, medicaments and biological substances; Z88.1 Allergy status to other antibiotic agents; Z91.040 Latex allergy status
CPT/HCPCS: 90899; G0410; Z7610